=== PATIENT | male | born 1930 | race Caucasian/White ===

== ENCOUNTER → 2017-05-24 | Outpatient (CLI) | payer MEDICARE, MEDICAID ==
[~2017-05-24] MED LIST: APAP325T4 PO; AZOP0.2S OU; BACITAB PO; BRIM1OPD OU; CARV3.12 PO; CLEO300C2 PO; DOCU100C16 PO; DOCU10CA PO; FINA5TAB2 PO; FLOM5CAP PO; FURO40TA2 PO; IPRASOL4 INH; KLOR1TAB77 PO; LEVA1TAB2 PO; LEVA750T7 PO; LISI2.5T3 PO; MAGN400C PO; MILKSUS PO; MILKSUS5 PO; POTA10CA PO; POTA20TA PO; PROAAER10 IN; TAMS0.4C2 PO; [UNRECOGNIZED DRUG - CODE] PO
== END ==
LOC: M ST 10:27
PROVIDERS: ATTEND Nurse Practitioner Family
DX: R13.10 Dysphagia, unspecified (principal)
CPT/HCPCS: 92610; G8996; G8997; G8998

== ENCOUNTER → 2017-09-21 | Outpatient (REF) | payer MEDICARE, MEDICAID ==
[2017-09-21 12:27] LABS: MEAN CORPUSCULAR HEMOGLOBIN 29.7 pg (27.0-33.0); PLATELET COUNT, AUTOMATED 158 10^3/uL (150-450); RED CELL DISTRIBUTION WIDTH 14.7 % (11.5-14.5); WHITE BLOOD COUNT 4.3 10^3/uL (4.0-10.0)
[2017-09-21 13:09] LABS: ALBUMIN 2.6 GM/DL (3.2-5.2); ALBUMIN/GLOBULIN RATIO 0.72 (1.00-1.93); ALKALINE PHOSPHATASE 61 U/L (45-117); ALT/SGPT 8 U/L (12-78); ANION GAP 9 MEQ/L (8-16); AST/SGOT 9 U/L (7-37); BILIRUBIN,TOTAL 0.7 MG/DL (0.2-1.0); BLOOD UREA NITROGEN 16 MG/DL (7-18); CALCIUM LEVEL 8.4 MG/DL (8.8-10.2); CARBON DIOXIDE LEVEL 32 MEQ/L (21-32); CHLORIDE LEVEL 100 MEQ/L (98-107); CREATININE FOR GFR 1.17 MG/DL (0.70-1.30); GLOMERULAR FILTRATION RATE > 60.0 (>35); GLUCOSE, FASTING 98 MG/DL (83-110); POTASSIUM SERUM 3.5 MEQ/L (3.5-5.1); SODIUM LEVEL 141 MEQ/L (136-145); TOTAL PROTEIN 6.2 GM/DL (6.4-8.2)
== END ==
PROVIDERS: ATTEND Nurse Practitioner Family
DX: I50.9 Heart failure, unspecified (principal)

== ENCOUNTER → 2017-11-29 | Outpatient (REF) | payer MEDICARE, MEDICAID ==
[2017-11-29 14:07] LABS: AMORPHOUS SEDIMENT SMALL (NEGATIVE); APPEARANCE, URINE CLOUDY (CLEAR); BACTERIA, URINE AUTO 2+ (NEGATIVE); BILIRUBIN, URINE AUTO NEGATIVE (NEGATIVE); BLOOD, URINE BLOOD 1+ (NEGATIVE); COLOR, URINE YELLOW (YELLOW); GLUCOSE, URINE (UA) AUTO NEGATIVE (NEGATIVE); KETONE, URINE AUTO NEGATIVE (NEGATIVE); LEUKOCYTE ESTERASE, URINE AUTO 3+ (NEGATIVE); MUCUS, URINE SMALL (NEGATIVE); NITRITE, URINE AUTO NEGATIVE (NEGATIVE); PROTEIN, URINE AUTO 1+ mg/dL (NEGATIVE); RBC, URINE AUTO 17 /HPF (0-3); SPECIFIC GRAVITY URINE AUTO 1.012 (1.002-1.035); SQUAMOUS EPITHELIAL CELL UR AU 0 /HPF (0-6); WBC, URINE AUTO 133 /HPF (0-3)
== END ==
DX: F28 Other psychotic disorder not due to a substance or known physiological condition (principal)
CPT/HCPCS: 81001

== ENCOUNTER 2018-01-02 18:27 | Emergency (ER) | payer MEDICARE, MEDICAID ==
[2018-01-02 19:39] LABS: BASO % 0.3 % (0.0-1.0); EOS % 0.1 % (0.0-3.0); HEMATOCRIT 37.3 % (42.0-52.0); HEMOGLOBIN 12.6 g/dl (14.0-18.0); IMMATURE GRANULOCYTE % 0.3 % (0-3.0); LYMPH # 0.3 10^3/uL (1.5-4.5); LYMPH % 4.2 % (24.0-44.0); MEAN CORPUSCULAR HEMOGLOBIN 30.1 pg (27.0-33.0); MEAN CORPUSCULAR HGB CONC 33.8 g/dl (32.0-36.5); MONO # 0.9 10^3/uL (0.0-0.8); NEUTROPHILS # 6.5 10^3/uL (1.8-7.7); NEUTROPHILS % 83.1 % (36.0-66.0); PLATELET COUNT, AUTOMATED 108 10^3/uL (150-450); RED BLOOD COUNT 4.19 10^6/uL (4.30-6.10); RED CELL DISTRIBUTION WIDTH 14.6 % (11.5-14.5); WHITE BLOOD COUNT 7.8 10^3/uL (4.0-10.0)
[2018-01-02 19:42] LABS: OSMOLALITY SERUM 289 MOSM/KG (280-301)
[2018-01-02 19:50] LABS: BEDSIDE GLUCOSE 175 MG/DL (83-110)
[2018-01-02 19:56] LABS: INR 1.17; PROTHROMBIN TIME 15.1 SECONDS (12.4-14.5)
[2018-01-02 20:03] LABS: ABG BASE EXCESS 4.4 (-2.0-2.0); ABG HCO3 26.7 MEQ/L (22.0-26.0); ABG O2 SATURATION 95.6 % (95.0-99.0); ABG PARTIAL PRESSURE CO2 32.5 mmHg (35.0-45.0); ABG PARTIAL PRESSURE O2 69.7 mmHg (75.0-100.0); ABG STANDARD HCO3 28.4 MEQ/L (22.0-26.0); ABG TOTAL CO2 27.7 MEQ/L (23.0-31.0); ABG pH (ARTERIAL) 7.532 UNITS (7.350-7.450)
[2018-01-02 20:04] LABS: AMMONIA 21 uMOL/L (<32)
[2018-01-02 20:09] LABS: LACTIC ACID SEPSIS PROTOCOL 1.9 MMOL/L (0.4-2.0)
[2018-01-02 20:13] LABS: ANION GAP 7 MEQ/L (8-16); BLOOD UREA NITROGEN 17 MG/DL (7-18); CALCIUM LEVEL 7.8 MG/DL (8.8-10.2); CARBON DIOXIDE LEVEL 29 MEQ/L (21-32); CHLORIDE LEVEL 101 MEQ/L (98-107); GLOMERULAR FILTRATION RATE 55.6 (>35); GLUCOSE, FASTING 183 MG/DL (70-100); POTASSIUM SERUM 3.8 MEQ/L (3.5-5.1); SODIUM LEVEL 137 MEQ/L (136-145)
[2018-01-02 20:14] LABS: ALKALINE PHOSPHATASE 64 U/L (45-117); ALT/SGPT 7 U/L (12-78); AST/SGOT 10 U/L (7-37); BILIRUBIN,TOTAL 0.8 MG/DL (0.2-1.0); CPK CREATINE PHOSPHOKINASE 21 U/L (39-308); MB/CK RELATIVE INDEX 4.76 (< OR =4)
[2018-01-02 20:15] LABS: ALBUMIN 2.8 GM/DL (3.2-5.2); BILIRUBIN,DIRECT 0.3 MG/DL (0.0-0.2); FREE THYROXINE INDEX 2.8 % (1.4-3.8); T UPTAKE 39 % (33-40); THYROXINE (T4) 7.3 UG/DL (4.5-12.0); TOTAL PROTEIN 6.3 GM/DL (6.4-8.2); TROPONIN I < 0.02 NG/ML (< 0.10)
[2018-01-02 20:27] LABS: KETONE, URINE AUTO RFX NEGATIVE (NEGATIVE); LEUKOCYTE ESTERASE UR AUTO RFX 2+ (NEGATIVE); MUCUS, URINE RFX SMALL (NEGATIVE); NITRITE, URINE AUTO RFX NEGATIVE (NEGATIVE); RBC, URINE AUTO RFX 2 /HPF (0-3); SPECIFIC GRAVITY UR AUTO RFX 1.012 (1.002-1.035); SQUAM EPITHELIAL CELL UR AURFX 0 /HPF (0-6); WBC, URINE AUTO RFX 20 /HPF (0-3)
[2018-01-02 20:38] LABS: AMPHETAMINES LEVEL URINE NEGATIVE (NEGATIVE); BARBITURATES URINE NEGATIVE (NEGATIVE); BENZODIAZEPINES URINE NEGATIVE (NEGATIVE); CANNABINOIDS URINE NEGATIVE (NEGATIVE); COCAINE METABOLITE URINE NEGATIVE (NEGATIVE); METHADONE URINE NEGATIVE (NEGATIVE); OPIATES URINE NEGATIVE (NEGATIVE); PHENCYCLIDINE URINE NEGATIVE (NEGATIVE)
== END 2018-01-03 00:30 | disposition home or self-care (01) ==
LOC: M ED 01-03 00:30
DX: R53.1 Weakness (principal); Z95.0 Presence of cardiac pacemaker; R94.31 Abnormal electrocardiogram [ECG] [EKG]; E66.9 Obesity, unspecified; I10 Essential (primary) hypertension; I50.9 Heart failure, unspecified; N40.0 Benign prostatic hyperplasia without lower urinary tract symptoms; H40.9 Unspecified glaucoma; Z79.899 Other long term (current) drug therapy
CPT/HCPCS: 71046

== ENCOUNTER → 2018-01-05 | Outpatient (REF) | payer MEDICARE, MEDICAID | DX: R91.8 Other nonspecific abnormal finding of lung field (principal); I51.7 Cardiomegaly; R05 Cough | CPT/HCPCS: 71045 ==

== ENCOUNTER → 2018-02-04 | Outpatient (REF) | payer MEDICARE, MEDICAID ==
[2018-02-04 10:46] LABS: HEMATOCRIT 41.5 % (42.0-52.0); HEMOGLOBIN 13.8 g/dl (13.5-17.5); MEAN CORPUSCULAR HEMOGLOBIN 29.9 pg (27.0-33.0); MEAN CORPUSCULAR HGB CONC 33.3 g/dl (32.0-36.5); PLATELET COUNT, AUTOMATED 141 10^3/uL (150-450); RED BLOOD COUNT 4.61 10^6/uL (4.30-6.10); WHITE BLOOD COUNT 7.4 10^3/uL (4.0-10.0)
[2018-02-04 11:22] LABS: ALBUMIN 2.9 GM/DL (3.2-5.2); ALBUMIN/GLOBULIN RATIO 0.74 (1.00-1.93); ALKALINE PHOSPHATASE 68 U/L (45-117); ALT/SGPT 8 U/L (12-78); ANION GAP 5 MEQ/L (8-16); AST/SGOT 10 U/L (7-37); BILIRUBIN,TOTAL 0.8 MG/DL (0.2-1.0); BLOOD UREA NITROGEN 14 MG/DL (7-18); CALCIUM LEVEL 8.3 MG/DL (8.8-10.2); CARBON DIOXIDE LEVEL 35 MEQ/L (21-32); CHLORIDE LEVEL 102 MEQ/L (98-107); CREATININE FOR GFR 1.21 MG/DL (0.70-1.30); GLOMERULAR FILTRATION RATE > 60.0 (>35); GLUCOSE, FASTING 90 MG/DL (70-100); NT-PRO BNP 3166 PG/ML (<450); POTASSIUM SERUM 3.2 MEQ/L (3.5-5.1); SODIUM LEVEL 142 MEQ/L (136-145); TOTAL PROTEIN 6.8 GM/DL (6.4-8.2)
== END ==
DX: R60.9 Edema, unspecified (principal)
CPT/HCPCS: 80053

== ENCOUNTER → 2018-02-25 | Outpatient (REF) | payer MEDICARE, MEDICAID ==
[2018-02-25 10:02] LABS: HEMATOCRIT 38.2 % (42.0-52.0); HEMOGLOBIN 12.9 g/dl (13.5-17.5); MEAN CORPUSCULAR HEMOGLOBIN 30.1 pg (27.0-33.0); MEAN CORPUSCULAR HGB CONC 33.8 g/dl (32.0-36.5); PLATELET COUNT, AUTOMATED 149 10^3/uL (150-450); RED BLOOD COUNT 4.29 10^6/uL (4.30-6.10); RED CELL DISTRIBUTION WIDTH 14.9 % (11.5-14.5); WHITE BLOOD COUNT 3.8 10^3/uL (4.0-10.0)
[2018-02-25 10:31] LABS: ALBUMIN 2.9 GM/DL (3.2-5.2); ALBUMIN/GLOBULIN RATIO 0.73 (1.00-1.93); ALKALINE PHOSPHATASE 68 U/L (45-117); ALT/SGPT < 6 U/L (12-78); ANION GAP 8 MEQ/L (8-16); AST/SGOT 10 U/L (7-37); BILIRUBIN,TOTAL 0.7 MG/DL (0.2-1.0); BLOOD UREA NITROGEN 16 MG/DL (7-18); CALCIUM LEVEL 8.3 MG/DL (8.8-10.2); CARBON DIOXIDE LEVEL 32 MEQ/L (21-32); CHLORIDE LEVEL 102 MEQ/L (98-107); CREATININE FOR GFR 1.05 MG/DL (0.70-1.30); GLOMERULAR FILTRATION RATE > 60.0 (>35); GLUCOSE, FASTING 88 MG/DL (70-100); POTASSIUM SERUM 3.1 MEQ/L (3.5-5.1); SODIUM LEVEL 142 MEQ/L (136-145); TOTAL PROTEIN 6.9 GM/DL (6.4-8.2)
== END ==
DX: I50.9 Heart failure, unspecified (principal)
CPT/HCPCS: 80053

== ENCOUNTER 2018-04-07 15:40 | Emergency (ER) | payer MEDICARE, MEDICAID | END 2018-04-07 17:33 | disposition home or self-care (01) | LOC: M ED 15:40 | DX: S00.03XA Contusion of scalp, initial encounter (principal); W19.XXXA Unspecified fall, initial encounter; Y92.9 Unspecified place or not applicable; Y93.9 Activity, unspecified; Y99.9 Unspecified external cause status; I10 Essential (primary) hypertension; H40.9 Unspecified glaucoma; Z79.899 Other long term (current) drug therapy | CPT/HCPCS: 70450 ==

== ENCOUNTER 2018-05-12 15:51 | Inpatient (IN) | payer MEDICARE, MEDICAID ==
[2018-05-12 17:31] LABS: HEMATOCRIT 37.9 % (42.0-52.0); HEMOGLOBIN 12.8 g/dl (13.5-17.5); MEAN CORPUSCULAR HEMOGLOBIN 30.5 pg (27.0-33.0); MEAN CORPUSCULAR HGB CONC 33.8 g/dl (32.0-36.5); MEAN CORPUSCULAR VOLUME 90.2 fl (80.0-96.0); PLATELET COUNT, AUTOMATED 120 10^3/uL (150-450); RED CELL DISTRIBUTION WIDTH 14.5 % (11.5-14.5); WHITE BLOOD COUNT 18.2 10^3/uL (4.0-10.0)
[2018-05-12 17:32] LABS: ADD MANUAL DIFFER YES; DIFF SLIDE NUMBER 291; POSITIVE MORPH POS FLAG
[2018-05-12 17:35] LABS: PROTHROMBIN TIME 16.4 SECONDS (12.1-14.4)
[2018-05-12 17:36] LABS: PARTIAL THROMBOPLASTIN TIME 36.6 SECONDS (25.4-37.6)
[2018-05-12 17:52] LABS: BANDS 10 % (< 11); BASOPHILS 1 % (0-4); LYMPHOCYTES 4 % (16-52); MONOCYTES 3 % (0-8); NEUTROPHILS 82 % (35-75); PLATELET ESTIMATE DECREASED (NORMAL)
[2018-05-12 17:55] LABS: ALBUMIN 2.6 GM/DL (3.2-5.2); ALBUMIN/GLOBULIN RATIO 0.67 (1.00-1.93); ALKALINE PHOSPHATASE 85 U/L (45-117); ALT/SGPT 8 U/L (12-78); ANION GAP 8 MEQ/L (8-16); AST/SGOT 6 U/L (7-37); BILIRUBIN,DIRECT 0.4 MG/DL (0.0-0.2); BILIRUBIN,TOTAL 1.4 MG/DL (0.2-1.0); BLOOD UREA NITROGEN 28 MG/DL (7-18); CALCIUM LEVEL 8.4 MG/DL (8.8-10.2); CARBON DIOXIDE LEVEL 31 MEQ/L (21-32); CHLORIDE LEVEL 101 MEQ/L (98-107); CPK CREATINE PHOSPHOKINASE 29 U/L (39-308); CREATININE FOR GFR 1.51 MG/DL (0.70-1.30); GLOMERULAR FILTRATION RATE 46.8 (>35); GLUCOSE, FASTING 122 MG/DL (70-100); POTASSIUM SERUM 3.8 MEQ/L (3.5-5.1); SODIUM LEVEL 140 MEQ/L (136-145); TOTAL PROTEIN 6.5 GM/DL (6.4-8.2); TROPONIN I < 0.02 NG/ML (< 0.10)
[2018-05-12 18:01] LABS: CK-MB VALUE MASS < 1.0 NG/ML (<3.6); MB/CK RELATIVE INDEX 3.44 (< OR =4); NT-PRO BNP 7923 PG/ML (<450)
[2018-05-12] MEDS: NS 500 ML IV (19:00)
[2018-05-12] MEDS: AZITHROMYCIN INJ 500 MG, VIAL MATE ADAPTER 1 EACH in D5W 250 ML IV (19:00)
[2018-05-12] MEDS: cefTRIAXone SOD 2 GM in D5W MINI-BAG PLUS 50 ML IV (19:00)
[2018-05-12 21:44] LABS: LACTIC ACID SEPSIS PROTOCOL 1.4 MMOL/L (0.4-2.0)
[2018-05-12] MEDS: NS 1,000 ML IV (21:55)
[2018-05-12] MEDS: HEPARIN SOD (PORCINE) 5000 UNITS/ML VIAL SC (22:00)
[2018-05-12] MEDS ORDERED: ACETAMINOPHEN TAB 650MG DOSE (2X325MG) PO (22:00)
[2018-05-12] MEDS ORDERED: IPRATROPIUM 0.5MG/ALBUTEROL 2.5MG INH SOL UD 3ML (DUONEB)(J7620) INH (22:15)
[2018-05-12] MEDS ORDERED: MOM 30ML SUSPENSION UDC PO (22:15)
[2018-05-12] MEDS ORDERED: DOCUSATE SODIUM 100 MG CAP PO (22:15)
[2018-05-12] MEDS ORDERED: ONDANSETRON 4 MG ORAL DISINTEGRATING TAB (Q0162 PER 1MG) PO (22:15)
[2018-05-13 00:51] LABS: MAGNESIUM LEVEL 2.1 MG/DL (1.8-2.4)
[2018-05-13] MEDS: SODIUM CHLORIDE 0.9% 1000 ML IV (02:00)
[2018-05-13 05:33] LABS: BASO % 0.2 % (0.0-1.0); EOS # 0.1 10^3/uL (0.0-0.50); EOS % 0.7 % (0.0-3.0); HEMATOCRIT 34.1 % (42.0-52.0); HEMOGLOBIN 11.6 g/dl (13.5-17.5); IMMATURE GRANULOCYTE % 0.5 % (0-3.0); LYMPH # 1.1 10^3/uL (1.5-4.5); LYMPH % 8.9 % (24.0-44.0); MEAN CORPUSCULAR HEMOGLOBIN 30.5 pg (27.0-33.0); MEAN CORPUSCULAR VOLUME 89.7 fl (80.0-96.0); MONO # 0.6 10^3/uL (0.0-0.8); MONO % 4.5 % (0.0-5.0); NEUTROPHILS # 10.3 10^3/uL (1.8-7.7); NEUTROPHILS % 85.2 % (36.0-66.0); PLATELET COUNT, AUTOMATED 104 10^3/uL (150-450); RED CELL DISTRIBUTION WIDTH 14.4 % (11.5-14.5); WHITE BLOOD COUNT 12.1 10^3/uL (4.0-10.0)
[2018-05-13 05:49] LABS: ANION GAP 5 MEQ/L (8-16); BLOOD UREA NITROGEN 27 MG/DL (7-18); CALCIUM LEVEL 8.1 MG/DL (8.8-10.2); CARBON DIOXIDE LEVEL 32 MEQ/L (21-32); CHLORIDE LEVEL 105 MEQ/L (98-107); CREATININE FOR GFR 1.24 MG/DL (0.70-1.30); GLOMERULAR FILTRATION RATE 58.7 (>35); GLUCOSE, FASTING 99 MG/DL (70-100); POTASSIUM SERUM 3.5 MEQ/L (3.5-5.1); SODIUM LEVEL 142 MEQ/L (136-145)
[2018-05-13] MEDS: HEPARIN SOD (PORCINE) 5000 UNITS/ML VIAL SC ×3 (06:50→22:12)
[2018-05-13] MEDS: POTASSIUM CHLORIDE 10 MEQ SR TABLET PO ×2 (08:12→22:12)
[2018-05-13] MEDS: DOCUSATE SODIUM 100 MG CAP PO ×2 (08:12→22:12)
[2018-05-13] MEDS: FINASTERIDE 5 MG TAB PO (08:12)
[2018-05-13] MEDS: TAMSULOSIN 0.4 MG CAP PO (08:12)
[2018-05-13] MEDS: BRIMONIDINE 0.1% OPHTH SOLN 5 ML OU (08:13)
[2018-05-13] MEDS: TORSEMIDE 20 MG TAB PO ×2 (08:13→14:16)
[2018-05-13 19:28] LABS: ERYTHROCYTE SEDIMENTATION RATE 30 mm/hr (0-30)
[2018-05-13] MEDS: cefTRIAXone SOD 1 GM in D5W MINI-BAG PLUS 50 ML IV (20:31)
[2018-05-13] MEDS: AZITHROMYCIN INJ 500 MG, VIAL MATE ADAPTER 1 EACH in D5W 250 ML IV (22:27)
[2018-05-14] MEDS: HEPARIN SOD (PORCINE) 5000 UNITS/ML VIAL SC ×3 (05:02→22:18)
[2018-05-14 08:42] LABS: BASO % 0.3 % (0.0-1.0); EOS # 0.1 10^3/uL (0.0-0.50); EOS % 0.8 % (0.0-3.0); HEMATOCRIT 38.5 % (42.0-52.0); HEMOGLOBIN 12.9 g/dl (13.5-17.5); IMMATURE GRANULOCYTE % 0.4 % (0-3.0); LYMPH # 1.4 10^3/uL (1.5-4.5); LYMPH % 19.7 % (24.0-44.0); MEAN CORPUSCULAR HEMOGLOBIN 30.4 pg (27.0-33.0); MEAN CORPUSCULAR HGB CONC 33.5 g/dl (32.0-36.5); MEAN CORPUSCULAR VOLUME 90.6 fl (80.0-96.0); MONO # 0.4 10^3/uL (0.0-0.8); MONO % 4.9 % (0.0-5.0); NEUTROPHILS # 5.2 10^3/uL (1.8-7.7); NEUTROPHILS % 73.9 % (36.0-66.0); PLATELET COUNT, AUTOMATED 127 10^3/uL (150-450); RED BLOOD COUNT 4.25 10^6/uL (4.30-6.10); RED CELL DISTRIBUTION WIDTH 14.6 % (11.5-14.5); WHITE BLOOD COUNT 7.1 10^3/uL (4.0-10.0)
[2018-05-14] MEDS: TAMSULOSIN 0.4 MG CAP PO (08:50)
[2018-05-14] MEDS: TORSEMIDE 20 MG TAB PO ×2 (08:50→13:58)
[2018-05-14] MEDS: FINASTERIDE 5 MG TAB PO (08:50)
[2018-05-14] MEDS: DOCUSATE SODIUM 100 MG CAP PO ×2 (08:51→20:35)
[2018-05-14] MEDS: POTASSIUM CHLORIDE 10 MEQ SR TABLET PO ×2 (08:51→10:20)
[2018-05-14 08:59] LABS: ANION GAP 7 MEQ/L (8-16); BLOOD UREA NITROGEN 21 MG/DL (7-18); CARBON DIOXIDE LEVEL 32 MEQ/L (21-32); CHLORIDE LEVEL 105 MEQ/L (98-107); CREATININE FOR GFR 1.11 MG/DL (0.70-1.30); GLOMERULAR FILTRATION RATE > 60.0 (>35); GLUCOSE, FASTING 105 MG/DL (70-100); MAGNESIUM LEVEL 2.1 MG/DL (1.8-2.4); POTASSIUM SERUM 2.9 MEQ/L (3.5-5.1); SODIUM LEVEL 144 MEQ/L (136-145)
[2018-05-14] MEDS: BRIMONIDINE 0.1% OPHTH SOLN 5 ML OU (09:00)
[2018-05-14 09:01] LABS: ALBUMIN 2.3 GM/DL (3.2-5.2); ALBUMIN/GLOBULIN RATIO 0.58 (1.00-1.93); ALKALINE PHOSPHATASE 76 U/L (45-117); ALT/SGPT 7 U/L (12-78); AST/SGOT 9 U/L (7-37); BILIRUBIN,DIRECT 0.2 MG/DL (0.0-0.2); BILIRUBIN,TOTAL 0.5 MG/DL (0.2-1.0); TOTAL PROTEIN 6.3 GM/DL (6.4-8.2)
[2018-05-14] MEDS: KCL 10MEQ/100ML SWI (KRUN) 10 MEQ in APPROPRIATE DILUENT 1 EA IV ×3 (10:20→13:50)
[2018-05-14 18:08] LABS: KETONE, URINE AUTO RFX NEGATIVE (NEGATIVE); LEUKOCYTE ESTERASE UR AUTO RFX 3+ (NEGATIVE); MUCUS, URINE RFX LARGE (NEGATIVE); NITRITE, URINE AUTO RFX NEGATIVE (NEGATIVE); RBC, URINE AUTO RFX 22 /HPF (0-3); SPECIFIC GRAVITY UR AUTO RFX 1.008 (1.002-1.035); SQUAM EPITHELIAL CELL UR AURFX 0 /HPF (0-6); WBC, URINE AUTO RFX 68 /HPF (0-3)
[2018-05-14] MEDS: cefTRIAXone SOD 1 GM in D5W MINI-BAG PLUS 50 ML IV (20:35)
[2018-05-14] MEDS: AZITHROMYCIN INJ 500 MG, VIAL MATE ADAPTER 1 EACH in D5W 250 ML IV (22:17)
[2018-05-15 06:00] LABS: HEMATOCRIT 35.8 % (42.0-52.0); HEMOGLOBIN 12.1 g/dl (13.5-17.5); MEAN CORPUSCULAR HEMOGLOBIN 30.3 pg (27.0-33.0); MEAN CORPUSCULAR HGB CONC 33.8 g/dl (32.0-36.5); MEAN CORPUSCULAR VOLUME 89.5 fl (80.0-96.0); PLATELET COUNT, AUTOMATED 119 10^3/uL (150-450); RED CELL DISTRIBUTION WIDTH 14.5 % (11.5-14.5); WHITE BLOOD COUNT 9.6 10^3/uL (4.0-10.0)
[2018-05-15] MEDS: HEPARIN SOD (PORCINE) 5000 UNITS/ML VIAL SC ×3 (06:04→22:11)
[2018-05-15 06:22] LABS: ANION GAP 6 MEQ/L (8-16); BLOOD UREA NITROGEN 21 MG/DL (7-18); CARBON DIOXIDE LEVEL 32 MEQ/L (21-32); CHLORIDE LEVEL 107 MEQ/L (98-107); CREATININE FOR GFR 1.02 MG/DL (0.70-1.30); GLOMERULAR FILTRATION RATE > 60.0 (>35); GLUCOSE, FASTING 99 MG/DL (70-100); MAGNESIUM LEVEL 2.1 MG/DL (1.8-2.4); POTASSIUM SERUM 3.3 MEQ/L (3.5-5.1); SODIUM LEVEL 145 MEQ/L (136-145)
[2018-05-15] MEDS: FINASTERIDE 5 MG TAB PO (08:55)
[2018-05-15] MEDS: POTASSIUM CHLORIDE 10 MEQ SR TABLET PO (08:55)
[2018-05-15] MEDS: TAMSULOSIN 0.4 MG CAP PO (08:55)
[2018-05-15] MEDS: DOCUSATE SODIUM 100 MG CAP PO ×2 (08:55→20:18)
[2018-05-15] MEDS: BRIMONIDINE 0.1% OPHTH SOLN 5 ML OU (08:55)
[2018-05-15] MEDS: TORSEMIDE 20 MG TAB PO ×2 (08:56→14:00)
[2018-05-15] MEDS: NYSTATIN 100,000 UNITS/GM TOPICAL PWD 15 GM TOP ×2 (14:42→22:11)
[2018-05-15] MEDS: cefTRIAXone SOD 1 GM in D5W MINI-BAG PLUS 50 ML IV (20:18)
[2018-05-15] MEDS: AZITHROMYCIN INJ 500 MG, VIAL MATE ADAPTER 1 EACH in D5W 250 ML IV (22:10)
[2018-05-16] MEDS: HEPARIN SOD (PORCINE) 5000 UNITS/ML VIAL SC ×3 (06:16→21:22)
[2018-05-16 06:58] LABS: HEMATOCRIT 39.4 % (42.0-52.0); HEMOGLOBIN 12.9 g/dl (13.5-17.5); MEAN CORPUSCULAR HEMOGLOBIN 30.1 pg (27.0-33.0); MEAN CORPUSCULAR HGB CONC 32.7 g/dl (32.0-36.5); MEAN CORPUSCULAR VOLUME 92.1 fl (80.0-96.0); PLATELET COUNT, AUTOMATED 135 10^3/uL (150-450); RED BLOOD COUNT 4.28 10^6/uL (4.30-6.10); RED CELL DISTRIBUTION WIDTH 14.6 % (11.5-14.5); WHITE BLOOD COUNT 5.3 10^3/uL (4.0-10.0)
[2018-05-16 07:12] LABS: ANION GAP 7 MEQ/L (8-16); BLOOD UREA NITROGEN 15 MG/DL (7-18); C REACTIVE PROTEIN QUANTITATIV 9.07 MG/DL (0.00-0.30); CALCIUM LEVEL 8.4 MG/DL (8.8-10.2); CARBON DIOXIDE LEVEL 32 MEQ/L (21-32); CHLORIDE LEVEL 108 MEQ/L (98-107); CREATININE FOR GFR 1.05 MG/DL (0.70-1.30); GLOMERULAR FILTRATION RATE > 60.0 (>35); GLUCOSE, FASTING 92 MG/DL (70-100); MAGNESIUM LEVEL 2.4 MG/DL (1.8-2.4); POTASSIUM SERUM 3.7 MEQ/L (3.5-5.1); SODIUM LEVEL 147 MEQ/L (136-145)
[2018-05-16] MEDS: POTASSIUM CHLORIDE 10 MEQ SR TABLET PO (09:08)
[2018-05-16] MEDS: DOCUSATE SODIUM 100 MG CAP PO ×2 (09:08→21:21)
[2018-05-16] MEDS: TORSEMIDE 20 MG TAB PO ×2 (09:08→14:46)
[2018-05-16] MEDS: BRIMONIDINE 0.1% OPHTH SOLN 5 ML OU (09:09)
[2018-05-16] MEDS: TAMSULOSIN 0.4 MG CAP PO (09:09)
[2018-05-16] MEDS: NYSTATIN 100,000 UNITS/GM TOPICAL PWD 15 GM TOP ×2 (09:09→21:22)
[2018-05-16] MEDS: FINASTERIDE 5 MG TAB PO (09:09)
[2018-05-16] MEDS: cefTRIAXone SOD 1 GM in D5W MINI-BAG PLUS 50 ML IV (20:09)
[2018-05-16] MEDS: AZITHROMYCIN INJ 500 MG, VIAL MATE ADAPTER 1 EACH in D5W 250 ML IV (21:21)
[2018-05-17 00:07] LABS: BODY FLUID CULTURE Not Indicated (.); LEGIONELLA ANTIGEN URINE Negative (Negative); ORGANISM ID Not indicated. (.); SPECIMEN SOURCE Urine (.); URINE STREP PNEUMONIAE ANTIGEN Negative (Negative)
[2018-05-17] MEDS: HEPARIN SOD (PORCINE) 5000 UNITS/ML VIAL SC ×3 (05:25→21:50)
[2018-05-17 06:14] LABS: HEMATOCRIT 39.8 % (42.0-52.0); HEMOGLOBIN 13.1 g/dl (13.5-17.5); MEAN CORPUSCULAR HEMOGLOBIN 30.1 pg (27.0-33.0); MEAN CORPUSCULAR HGB CONC 32.9 g/dl (32.0-36.5); MEAN CORPUSCULAR VOLUME 91.5 fl (80.0-96.0); PLATELET COUNT, AUTOMATED 133 10^3/uL (150-450); RED BLOOD COUNT 4.35 10^6/uL (4.30-6.10); RED CELL DISTRIBUTION WIDTH 14.4 % (11.5-14.5); WHITE BLOOD COUNT 4.4 10^3/uL (4.0-10.0)
[2018-05-17 06:27] LABS: ANION GAP 3 MEQ/L (8-16); BLOOD UREA NITROGEN 13 MG/DL (7-18); CALCIUM LEVEL 8.5 MG/DL (8.8-10.2); CARBON DIOXIDE LEVEL 36 MEQ/L (21-32); CHLORIDE LEVEL 106 MEQ/L (98-107); CREATININE FOR GFR 1.06 MG/DL (0.70-1.30); GLOMERULAR FILTRATION RATE > 60.0 (>35); GLUCOSE, FASTING 94 MG/DL (70-100); MAGNESIUM LEVEL 2.3 MG/DL (1.8-2.4); POTASSIUM SERUM 3.6 MEQ/L (3.5-5.1); SODIUM LEVEL 145 MEQ/L (136-145)
[2018-05-17] MEDS: POTASSIUM CHLORIDE 10 MEQ SR TABLET PO (08:10)
[2018-05-17] MEDS: TORSEMIDE 20 MG TAB PO ×2 (08:11→14:00)
[2018-05-17] MEDS: FINASTERIDE 5 MG TAB PO (08:11)
[2018-05-17] MEDS: TAMSULOSIN 0.4 MG CAP PO (08:11)
[2018-05-17] MEDS: DOCUSATE SODIUM 100 MG CAP PO ×2 (08:11→20:06)
[2018-05-17] MEDS: NYSTATIN 100,000 UNITS/GM TOPICAL PWD 15 GM TOP ×2 (08:12→20:06)
[2018-05-17] MEDS: BRIMONIDINE 0.1% OPHTH SOLN 5 ML OU (08:12)
[2018-05-17] MEDS: AZITHROMYCIN 250 MG TAB PO (15:06)
[2018-05-17] MEDS: cefTRIAXone SOD 1 GM in D5W MINI-BAG PLUS 50 ML IV (20:05)
[2018-05-18] MEDS: HEPARIN SOD (PORCINE) 5000 UNITS/ML VIAL SC (05:03)
[2018-05-18 07:17] LABS: HEMATOCRIT 38.5 % (42.0-52.0); HEMOGLOBIN 12.8 g/dl (13.5-17.5); MEAN CORPUSCULAR HGB CONC 33.2 g/dl (32.0-36.5); MEAN CORPUSCULAR VOLUME 90.4 fl (80.0-96.0); PLATELET COUNT, AUTOMATED 148 10^3/uL (150-450); RED BLOOD COUNT 4.26 10^6/uL (4.30-6.10); RED CELL DISTRIBUTION WIDTH 14.4 % (11.5-14.5); WHITE BLOOD COUNT 4.3 10^3/uL (4.0-10.0)
[2018-05-18 07:45] LABS: ANION GAP 4 MEQ/L (8-16); BLOOD UREA NITROGEN 14 MG/DL (7-18); CALCIUM LEVEL 8.3 MG/DL (8.8-10.2); CARBON DIOXIDE LEVEL 35 MEQ/L (21-32); CHLORIDE LEVEL 106 MEQ/L (98-107); CREATININE FOR GFR 1.11 MG/DL (0.70-1.30); GLOMERULAR FILTRATION RATE > 60.0 (>35); GLUCOSE, FASTING 97 MG/DL (70-100); MAGNESIUM LEVEL 2.4 MG/DL (1.8-2.4); POTASSIUM SERUM 4.1 MEQ/L (3.5-5.1); SODIUM LEVEL 145 MEQ/L (136-145)
[2018-05-18] MEDS: TAMSULOSIN 0.4 MG CAP PO (08:31)
[2018-05-18] MEDS: DOCUSATE SODIUM 100 MG CAP PO (08:31)
[2018-05-18] MEDS: FINASTERIDE 5 MG TAB PO (08:31)
[2018-05-18] MEDS: POTASSIUM CHLORIDE 10 MEQ SR TABLET PO (08:32)
[2018-05-18] MEDS: AZITHROMYCIN 250 MG TAB PO (08:32)
[2018-05-18 08:41] LABS: C REACTIVE PROTEIN QUANTITATIV 3.58 MG/DL (0.00-0.30)
[2018-05-18] MEDS: BRIMONIDINE 0.1% OPHTH SOLN 5 ML OU (09:00)
[2018-05-18] MEDS: NYSTATIN 100,000 UNITS/GM TOPICAL PWD 15 GM TOP (09:00)
== END 2018-05-18 13:07 | DRG 871 ==
LOC: M MS4PR 05-17 21:16 → M MSPAV 05-13 15:46 → M ED 15:51 → M ED INP 22:31 → M PCU 23:31
DX: A41.9 Sepsis, unspecified organism (principal); J18.9 Pneumonia, unspecified organism; I50.32 Chronic diastolic (congestive) heart failure; N17.9 Acute kidney failure, unspecified; I11.0 Hypertensive heart disease with heart failure; E78.5 Hyperlipidemia, unspecified; N40.0 Benign prostatic hyperplasia without lower urinary tract symptoms; N48.29 Other inflammatory disorders of penis; B96.5 Pseudomonas (aeruginosa) (mallei) (pseudomallei) as the cause of diseases classified elsewhere; M19.90 Unspecified osteoarthritis, unspecified site; H40.9 Unspecified glaucoma; Z95.0 Presence of cardiac pacemaker; Z98.41 Cataract extraction status, right eye; Z98.42 Cataract extraction status, left eye; Z79.899 Other long term (current) drug therapy

== ENCOUNTER → 2018-05-12 | Outpatient (CLI) | payer MEDICARE, MEDICAID | LOC: M LRY 13:27 | DX: R05 Cough (principal); J98.4 Other disorders of lung; I51.7 Cardiomegaly; I70.0 Atherosclerosis of aorta; M85.88 Other specified disorders of bone density and structure, other site; Z95.0 Presence of cardiac pacemaker | CPT/HCPCS: 71046 ==

== ENCOUNTER → 2018-05-24 | Outpatient (REF) ==
[2018-05-24 15:16] LABS: ANION GAP 10 MEQ/L (8-16); BLOOD UREA NITROGEN 25 MG/DL (7-18); CALCIUM LEVEL 8.5 MG/DL (8.8-10.2); CARBON DIOXIDE LEVEL 30 MEQ/L (21-32); CHLORIDE LEVEL 106 MEQ/L (98-107); CREATININE FOR GFR 1.85 MG/DL (0.70-1.30); GLUCOSE, FASTING 176 MG/DL (70-100); NT-PRO BNP 1912 PG/ML (<450); POTASSIUM SERUM 4.1 MEQ/L (3.5-5.1); SODIUM LEVEL 146 MEQ/L (136-145)
== END ==
LOC: SKLAB5 10:12
DX: I50.9 Heart failure, unspecified (principal)

== ENCOUNTER → 2018-06-07 | Outpatient (CLI) | payer MEDICARE, MEDICAID | LOC: M ST 12:54 | DX: R13.12 Dysphagia, oropharyngeal phase (principal); A41.9 Sepsis, unspecified organism | CPT/HCPCS: 74230 ==

== ENCOUNTER → 2018-06-08 | Outpatient (REF) | payer MEDICARE, MEDICAID ==
[2018-06-08 15:21] LABS: ANION GAP 6 MEQ/L (8-16); BLOOD UREA NITROGEN 33 MG/DL (7-18); CALCIUM LEVEL 7.9 MG/DL (8.8-10.2); CARBON DIOXIDE LEVEL 32 MEQ/L (21-32); CHLORIDE LEVEL 110 MEQ/L (98-107); GLUCOSE, FASTING 122 MG/DL (70-100); NT-PRO BNP 1906 PG/ML (<450); POTASSIUM SERUM 3.7 MEQ/L (3.5-5.1); SODIUM LEVEL 148 MEQ/L (136-145)
== END ==
LOC: SKLAB5 14:10
DX: I50.9 Heart failure, unspecified (principal)
CPT/HCPCS: 71045

== ENCOUNTER → 2018-06-09 | Outpatient (REF) | payer MEDICARE, MEDICAID ==
[2018-06-09 09:18] LABS: ANION GAP 6 MEQ/L (8-16); BLOOD UREA NITROGEN 32 MG/DL (7-18); CALCIUM LEVEL 8.3 MG/DL (8.8-10.2); CARBON DIOXIDE LEVEL 34 MEQ/L (21-32); CHLORIDE LEVEL 111 MEQ/L (98-107); CREATININE FOR GFR 1.33 MG/DL (0.70-1.30); GLOMERULAR FILTRATION RATE 54.1 (>35); GLUCOSE, FASTING 85 MG/DL (70-100); POTASSIUM SERUM 3.9 MEQ/L (3.5-5.1); SODIUM LEVEL 151 MEQ/L (136-145)
== END ==
LOC: SKLAB5 03:28
DX: I50.9 Heart failure, unspecified (principal)
CPT/HCPCS: 36415

== ENCOUNTER → 2018-06-10 | Outpatient (REF) ==
[2018-06-10 08:23] LABS: ANION GAP 6 MEQ/L (8-16); BLOOD UREA NITROGEN 32 MG/DL (7-18); CALCIUM LEVEL 8.4 MG/DL (8.8-10.2); CARBON DIOXIDE LEVEL 33 MEQ/L (21-32); CHLORIDE LEVEL 109 MEQ/L (98-107); CREATININE FOR GFR 1.45 MG/DL (0.70-1.30); GLUCOSE, FASTING 84 MG/DL (70-100); SODIUM LEVEL 148 MEQ/L (136-145)
== END ==
LOC: SKLAB5 08:00
DX: E86.0 Dehydration (principal)

== ENCOUNTER → 2018-06-13 | Outpatient (REF) | payer MEDICARE, MEDICAID ==
[2018-06-13 09:41] LABS: ANION GAP 8 MEQ/L (8-16); BLOOD UREA NITROGEN 26 MG/DL (7-18); CALCIUM LEVEL 8.2 MG/DL (8.8-10.2); CARBON DIOXIDE LEVEL 29 MEQ/L (21-32); CHLORIDE LEVEL 107 MEQ/L (98-107); CREATININE FOR GFR 1.11 MG/DL (0.70-1.30); GLOMERULAR FILTRATION RATE > 60.0 (>35); GLUCOSE, FASTING 76 MG/DL (70-100); SODIUM LEVEL 144 MEQ/L (136-145)
== END ==
LOC: M LAB 08:25
DX: I50.9 Heart failure, unspecified (principal); E87.0 Hyperosmolality and hypernatremia
CPT/HCPCS: 80048

== ENCOUNTER → 2018-06-16 | Outpatient (REF) ==
[2018-06-16 09:54] LABS: ANION GAP 6 MEQ/L (8-16); BLOOD UREA NITROGEN 24 MG/DL (7-18); CALCIUM LEVEL 8.3 MG/DL (8.8-10.2); CARBON DIOXIDE LEVEL 30 MEQ/L (21-32); CHLORIDE LEVEL 109 MEQ/L (98-107); CREATININE FOR GFR 1.13 MG/DL (0.70-1.30); GLOMERULAR FILTRATION RATE > 60.0 (>35); GLUCOSE, FASTING 113 MG/DL (70-100); POTASSIUM SERUM 3.7 MEQ/L (3.5-5.1); SODIUM LEVEL 145 MEQ/L (136-145)
== END ==
LOC: SKLAB5 08:00
DX: I50.9 Heart failure, unspecified (principal)

== ENCOUNTER → 2018-06-23 | Outpatient (REF) | payer MEDICARE, MEDICAID ==
[2018-06-23 11:24] LABS: ANION GAP 7 MEQ/L (8-16); BLOOD UREA NITROGEN 21 MG/DL (7-18); CALCIUM LEVEL 8.5 MG/DL (8.8-10.2); CARBON DIOXIDE LEVEL 29 MEQ/L (21-32); CHLORIDE LEVEL 110 MEQ/L (98-107); CREATININE FOR GFR 1.28 MG/DL (0.70-1.30); GLOMERULAR FILTRATION RATE 56.6 (>35); GLUCOSE, FASTING 90 MG/DL (70-100); POTASSIUM SERUM 4.2 MEQ/L (3.5-5.1); SODIUM LEVEL 146 MEQ/L (136-145)
== END ==
LOC: SKLAB5 08:39
DX: I50.9 Heart failure, unspecified (principal)
CPT/HCPCS: 80048

== ENCOUNTER 2018-08-02 21:23 | Inpatient (IN) | payer MEDICARE, MEDICAID ==
[2018-08-02 22:08] LABS: BASO % 0.9 % (0.0-1.0); EOS # 0.1 10^3/uL (0.0-0.50); EOS % 3.2 % (0.0-3.0); HEMATOCRIT 36.6 % (42.0-52.0); HEMOGLOBIN 11.9 g/dl (13.5-17.5); LYMPH % 45.7 % (24.0-44.0); MEAN CORPUSCULAR HEMOGLOBIN 30.9 pg (27.0-33.0); MEAN CORPUSCULAR HGB CONC 32.5 g/dl (32.0-36.5); MEAN CORPUSCULAR VOLUME 95.1 fl (80.0-96.0); MONO # 0.5 10^3/uL (0.0-0.8); MONO % 11.9 % (0.0-5.0); NEUTROPHILS # 1.7 10^3/uL (1.8-7.7); NEUTROPHILS % 38.3 % (36.0-66.0); PLATELET COUNT, AUTOMATED 174 10^3/uL (150-450); RED BLOOD COUNT 3.85 10^6/uL (4.30-6.10); RED CELL DISTRIBUTION WIDTH 15.5 % (11.5-14.5); WHITE BLOOD COUNT 4.4 10^3/uL (4.0-10.0)
[2018-08-02 22:37] LABS: ANION GAP 8 MEQ/L (8-16); BLOOD UREA NITROGEN 20 MG/DL (7-18); CARBON DIOXIDE LEVEL 31 MEQ/L (21-32); CHLORIDE LEVEL 104 MEQ/L (98-107); CREATININE FOR GFR 1.38 MG/DL (0.70-1.30); GLOMERULAR FILTRATION RATE 51.8 (>35); GLUCOSE, FASTING 134 MG/DL (70-100); SODIUM LEVEL 143 MEQ/L (136-145)
[2018-08-02] MEDS: FUROSEMIDE 40 MG/4 ML VIAL (J1940) IV (23:43)
[2018-08-02 23:50] LABS: CK-MB VALUE MASS < 1.0 NG/ML (<3.6); CPK CREATINE PHOSPHOKINASE 19 U/L (39-308); MB/CK RELATIVE INDEX 5.26 (< OR =4); NT-PRO BNP 3824 PG/ML (<450); TROPONIN I < 0.02 NG/ML (< 0.10)
[2018-08-03] MEDS: POTASSIUM CHLORIDE 10 MEQ SR TABLET PO ×4 (00:15→21:24)
[2018-08-03] MEDS: POTASSIUM CHL PWD 20 MEQ PACKET PO (01:03)
[2018-08-03] MEDS: PIPERACILLIN/TAZOBACTAM SOD 3.375 GM in D5W MINI-BAG PLUS 50 ML IV ×3 (05:08→21:24)
[2018-08-03] MEDS ORDERED: MOM 30ML SUSPENSION UDC PO (05:30)
[2018-08-03] MEDS ORDERED: ACETAMINOPHEN 650 MG SUPP PR (05:30)
[2018-08-03] MEDS ORDERED: IPRATROPIUM 0.5MG/ALBUTEROL 2.5MG INH SOL UD 3ML (DUONEB)(J7620) NEB (05:30)
[2018-08-03] MEDS: HEPARIN SOD (PORCINE) 5000 UNITS/ML VIAL SC ×3 (06:00→21:23)
[2018-08-03 07:28] LABS: HEMOGLOBIN 11.1 g/dl (13.5-17.5); MEAN CORPUSCULAR HEMOGLOBIN 30.7 pg (27.0-33.0); MEAN CORPUSCULAR HGB CONC 33.6 g/dl (32.0-36.5); MEAN CORPUSCULAR VOLUME 91.4 fl (80.0-96.0); PLATELET COUNT, AUTOMATED 181 10^3/uL (150-450); RED BLOOD COUNT 3.61 10^6/uL (4.30-6.10); RED CELL DISTRIBUTION WIDTH 15.3 % (11.5-14.5); WHITE BLOOD COUNT 10.2 10^3/uL (4.0-10.0)
[2018-08-03 07:58] LABS: ANION GAP 8 MEQ/L (8-16); BLOOD UREA NITROGEN 22 MG/DL (7-18); C REACTIVE PROTEIN QUANTITATIV 2.22 MG/DL (0.00-0.30); CALCIUM LEVEL 7.8 MG/DL (8.8-10.2); CARBON DIOXIDE LEVEL 28 MEQ/L (21-32); CHLORIDE LEVEL 107 MEQ/L (98-107); GLOMERULAR FILTRATION RATE 55.5 (>35); GLUCOSE, FASTING 157 MG/DL (70-100); POTASSIUM SERUM 3.4 MEQ/L (3.5-5.1); SODIUM LEVEL 143 MEQ/L (136-145)
[2018-08-03] MEDS: IPRATROPIUM 0.5MG/ALBUTEROL 2.5MG INH SOL UD 3ML (DUONEB)(J7620) NEB ×3 (08:53→20:02)
[2018-08-03] MEDS: NS 500 ML IV (09:15)
[2018-08-03] MEDS: BRIMONIDINE 0.1% OPHTH SOLN 5 ML OU (09:53)
[2018-08-03] MEDS: MULTIVITAMINS/MINERALS THERAP 1 TAB PO ×2 (09:53→09:57)
[2018-08-03] MEDS: DOCUSATE SODIUM 100 MG CAP PO ×2 (09:56→21:24)
[2018-08-03] MEDS: NS 1,000 ML IV (10:48)
[2018-08-03 11:46] LABS: LACTIC ACID SEPSIS PROTOCOL 1.9 MMOL/L (0.4-2.0)
[2018-08-03 17:21] LABS: APPEARANCE, URINE CLEAR (CLEAR); BACTERIA, URINE AUTO 1+ (NEGATIVE); BILIRUBIN, URINE AUTO NEGATIVE (NEGATIVE); BLOOD, URINE BLOOD NEGATIVE (NEGATIVE); COLOR, URINE YELLOW (YELLOW); GLUCOSE, URINE (UA) AUTO NEGATIVE (NEGATIVE); KETONE, URINE AUTO NEGATIVE (NEGATIVE); LEUKOCYTE ESTERASE, URINE AUTO 2+ (NEGATIVE); MUCUS, URINE SMALL (NEGATIVE); NITRITE, URINE AUTO NEGATIVE (NEGATIVE); PROTEIN, URINE AUTO NEGATIVE (NEGATIVE); RBC, URINE AUTO 0 /HPF (0-3); SPECIFIC GRAVITY URINE AUTO 1.013 (1.002-1.035); SQUAMOUS EPITHELIAL CELL UR AU 0 /HPF (0-6); UROBILINOGEN, URINE AUTO 0.2 mg/dL (0.0-2.0); WBC, URINE AUTO 17 /HPF (0-3)
[2018-08-03] MEDS ORDERED: PILL CRUSHER/CUTTER 1 EACH XX (20:45)
[2018-08-03] MEDS: NEOSPORIN TOP OINT 15GM TOP (21:23)
[2018-08-03] MEDS: MIRTAZAPINE 15 MG TAB PO (21:24)
[2018-08-04] MEDS: IPRATROPIUM 0.5MG/ALBUTEROL 2.5MG INH SOL UD 3ML (DUONEB)(J7620) NEB ×4 (02:31→19:48)
[2018-08-04] MEDS: PIPERACILLIN/TAZOBACTAM SOD 3.375 GM in D5W MINI-BAG PLUS 50 ML IV ×3 (05:17→21:19)
[2018-08-04] MEDS: HEPARIN SOD (PORCINE) 5000 UNITS/ML VIAL SC ×3 (05:18→21:19)
[2018-08-04 07:05] LABS: HEMATOCRIT 34.2 % (42.0-52.0); MEAN CORPUSCULAR HEMOGLOBIN 30.3 pg (27.0-33.0); MEAN CORPUSCULAR HGB CONC 32.2 g/dl (32.0-36.5); MEAN CORPUSCULAR VOLUME 94.2 fl (80.0-96.0); PLATELET COUNT, AUTOMATED 165 10^3/uL (150-450); RED BLOOD COUNT 3.63 10^6/uL (4.30-6.10); RED CELL DISTRIBUTION WIDTH 15.5 % (11.5-14.5); WHITE BLOOD COUNT 8.8 10^3/uL (4.0-10.0)
[2018-08-04 07:37] LABS: ANION GAP 4 MEQ/L (8-16); BLOOD UREA NITROGEN 22 MG/DL (7-18); C REACTIVE PROTEIN QUANTITATIV 2.02 MG/DL (0.00-0.30); CALCIUM LEVEL 7.9 MG/DL (8.8-10.2); CARBON DIOXIDE LEVEL 33 MEQ/L (21-32); CHLORIDE LEVEL 110 MEQ/L (98-107); CREATININE FOR GFR 1.36 MG/DL (0.70-1.30); GLOMERULAR FILTRATION RATE 52.6 (>35); GLUCOSE, FASTING 88 MG/DL (70-100); NT-PRO BNP 14541 PG/ML (<450); POTASSIUM SERUM 3.2 MEQ/L (3.5-5.1); SODIUM LEVEL 147 MEQ/L (136-145)
[2018-08-04] MEDS: POTASSIUM CHLORIDE 10% LIQ 20 MEQ/15 ML UDC PO ×4 (08:27→21:17)
[2018-08-04] MEDS: TORSEMIDE 20 MG TAB PO ×2 (08:28→09:00)
[2018-08-04] MEDS: DOCUSATE SODIUM 100 MG CAP PO ×2 (08:28→21:00)
[2018-08-04] MEDS: MULTIVITAMINS/MINERALS THERAP 1 TAB PO (08:28)
[2018-08-04] MEDS: BRIMONIDINE 0.1% OPHTH SOLN 5 ML OU (09:00)
[2018-08-04] MEDS: NEOSPORIN TOP OINT 15GM TOP ×2 (10:35→21:19)
[2018-08-04] MEDS: KCL 10MEQ/100ML SWI (KRUN) 10 MEQ in APPROPRIATE DILUENT 1 EA IV ×4 (10:55→22:27)
[2018-08-04 14:13] LABS: ANION GAP 6 MEQ/L (8-16); BLOOD UREA NITROGEN 22 MG/DL (7-18); CALCIUM LEVEL 8.4 MG/DL (8.8-10.2); CARBON DIOXIDE LEVEL 33 MEQ/L (21-32); CHLORIDE LEVEL 109 MEQ/L (98-107); CREATININE FOR GFR 1.27 MG/DL (0.70-1.30); GLUCOSE, FASTING 93 MG/DL (70-100); POTASSIUM SERUM 3.5 MEQ/L (3.5-5.1); SODIUM LEVEL 148 MEQ/L (136-145)
[2018-08-04] MEDS: FUROSEMIDE 40 MG/4 ML VIAL (J1940) IV (15:45)
[2018-08-04 18:21] LABS: ANION GAP 6 MEQ/L (8-16); BLOOD UREA NITROGEN 19 MG/DL (7-18); CALCIUM LEVEL 8.4 MG/DL (8.8-10.2); CARBON DIOXIDE LEVEL 32 MEQ/L (21-32); CHLORIDE LEVEL 109 MEQ/L (98-107); CREATININE FOR GFR 1.31 MG/DL (0.70-1.30); GLUCOSE, FASTING 106 MG/DL (70-100); POTASSIUM SERUM 3.4 MEQ/L (3.5-5.1); SODIUM LEVEL 147 MEQ/L (136-145)
[2018-08-04] MEDS: MIRTAZAPINE 15 MG TAB PO (21:20)
[2018-08-05] MEDS: IPRATROPIUM 0.5MG/ALBUTEROL 2.5MG INH SOL UD 3ML (DUONEB)(J7620) NEB ×4 (02:00→20:17)
[2018-08-05] MEDS: HEPARIN SOD (PORCINE) 5000 UNITS/ML VIAL SC ×3 (05:09→21:47)
[2018-08-05] MEDS: PIPERACILLIN/TAZOBACTAM SOD 3.375 GM in D5W MINI-BAG PLUS 50 ML IV ×3 (05:09→21:47)
[2018-08-05 06:45] LABS: HEMATOCRIT 36.5 % (42.0-52.0); HEMOGLOBIN 11.7 g/dl (13.5-17.5); MEAN CORPUSCULAR HEMOGLOBIN 30.5 pg (27.0-33.0); MEAN CORPUSCULAR HGB CONC 32.1 g/dl (32.0-36.5); MEAN CORPUSCULAR VOLUME 95.3 fl (80.0-96.0); PLATELET COUNT, AUTOMATED 167 10^3/uL (150-450); RED BLOOD COUNT 3.83 10^6/uL (4.30-6.10); RED CELL DISTRIBUTION WIDTH 15.8 % (11.5-14.5); WHITE BLOOD COUNT 4.6 10^3/uL (4.0-10.0)
[2018-08-05 07:13] LABS: ANION GAP 5 MEQ/L (8-16); BLOOD UREA NITROGEN 18 MG/DL (7-18); C REACTIVE PROTEIN QUANTITATIV 4.86 MG/DL (0.00-0.30); CALCIUM LEVEL 8.4 MG/DL (8.8-10.2); CARBON DIOXIDE LEVEL 33 MEQ/L (21-32); CHLORIDE LEVEL 111 MEQ/L (98-107); CREATININE FOR GFR 1.21 MG/DL (0.70-1.30); GLOMERULAR FILTRATION RATE > 60.0 (>35); GLUCOSE, FASTING 86 MG/DL (70-100); POTASSIUM SERUM 3.7 MEQ/L (3.5-5.1); SODIUM LEVEL 149 MEQ/L (136-145)
[2018-08-05] MEDS: POTASSIUM CHLORIDE 10% LIQ 20 MEQ/15 ML UDC PO ×2 (08:11→21:48)
[2018-08-05] MEDS: MULTIVITAMINS/MINERALS THERAP 1 TAB PO (08:11)
[2018-08-05] MEDS: DOCUSATE SOD LIQ 100MG/10ML UDC PO ×2 (08:11→21:48)
[2018-08-05] MEDS: BRIMONIDINE 0.1% OPHTH SOLN 5 ML OU (08:12)
[2018-08-05] MEDS: NEOSPORIN TOP OINT 15GM TOP ×2 (08:12→21:48)
[2018-08-05] MEDS ORDERED: guaiFENesin SYRUP 200 MG/10 ML UDC PO (15:15)
[2018-08-05] MEDS: D5W 1,000 ML IV (15:30)
[2018-08-05] MEDS: FUROSEMIDE 40 MG/4 ML VIAL (J1940) IV (15:30)
[2018-08-05] MEDS: MIRTAZAPINE 15 MG TAB PO (21:48)
[2018-08-05 22:21] LABS: ANION GAP 4 MEQ/L (8-16); BLOOD UREA NITROGEN 15 MG/DL (7-18); CALCIUM LEVEL 7.9 MG/DL (8.8-10.2); CARBON DIOXIDE LEVEL 33 MEQ/L (21-32); CHLORIDE LEVEL 109 MEQ/L (98-107); CREATININE FOR GFR 1.18 MG/DL (0.70-1.30); GLOMERULAR FILTRATION RATE > 60.0 (>35); GLUCOSE, FASTING 105 MG/DL (70-100); POTASSIUM SERUM 3.4 MEQ/L (3.5-5.1); SODIUM LEVEL 146 MEQ/L (136-145)
[2018-08-06] MEDS: IPRATROPIUM 0.5MG/ALBUTEROL 2.5MG INH SOL UD 3ML (DUONEB)(J7620) NEB ×4 (02:00→20:05)
[2018-08-06] MEDS: PIPERACILLIN/TAZOBACTAM SOD 3.375 GM in D5W MINI-BAG PLUS 50 ML IV ×3 (05:09→21:19)
[2018-08-06] MEDS: D5W 1,000 ML IV (05:09)
[2018-08-06] MEDS: HEPARIN SOD (PORCINE) 5000 UNITS/ML VIAL SC ×3 (05:09→21:19)
[2018-08-06 06:55] LABS: HEMATOCRIT 37.9 % (42.0-52.0); MEAN CORPUSCULAR HEMOGLOBIN 30.4 pg (27.0-33.0); MEAN CORPUSCULAR HGB CONC 31.7 g/dl (32.0-36.5); MEAN CORPUSCULAR VOLUME 95.9 fl (80.0-96.0); PLATELET COUNT, AUTOMATED 167 10^3/uL (150-450); RED BLOOD COUNT 3.95 10^6/uL (4.30-6.10); RED CELL DISTRIBUTION WIDTH 15.7 % (11.5-14.5); WHITE BLOOD COUNT 4.7 10^3/uL (4.0-10.0)
[2018-08-06 07:27] LABS: ANION GAP 6 MEQ/L (8-16); BLOOD UREA NITROGEN 14 MG/DL (7-18); C REACTIVE PROTEIN QUANTITATIV 3.04 MG/DL (0.00-0.30); CALCIUM LEVEL 7.6 MG/DL (8.8-10.2); CARBON DIOXIDE LEVEL 34 MEQ/L (21-32); CHLORIDE LEVEL 106 MEQ/L (98-107); CREATININE FOR GFR 1.12 MG/DL (0.70-1.30); GLOMERULAR FILTRATION RATE > 60.0 (>35); GLUCOSE, FASTING 90 MG/DL (70-100); POTASSIUM SERUM 3.1 MEQ/L (3.5-5.1); SODIUM LEVEL 146 MEQ/L (136-145)
[2018-08-06] MEDS: DOCUSATE SOD LIQ 100MG/10ML UDC PO ×2 (10:09→21:18)
[2018-08-06] MEDS: POTASSIUM CHLORIDE 10% LIQ 20 MEQ/15 ML UDC PO ×2 (10:09→21:18)
[2018-08-06] MEDS: KCL 10MEQ/100ML SWI (KRUN) 10 MEQ in APPROPRIATE DILUENT 1 EA IV ×3 (10:10→17:00)
[2018-08-06] MEDS: MULTIVITAMINS/MINERALS THERAP 1 TAB PO (10:10)
[2018-08-06] MEDS: TORSEMIDE 10 MG TABLET PO (10:10)
[2018-08-06] MEDS: NEOSPORIN TOP OINT 15GM TOP ×2 (10:11→21:19)
[2018-08-06] MEDS: BRIMONIDINE 0.1% OPHTH SOLN 5 ML OU (10:11)
[2018-08-06] MEDS: POTASSIUM CHLORIDE INJ 40 MEQ in D5W 1,000 ML IV (10:56)
[2018-08-06 13:53] LABS: ANION GAP 4 MEQ/L (8-16); BLOOD UREA NITROGEN 14 MG/DL (7-18); CALCIUM LEVEL 7.8 MG/DL (8.8-10.2); CARBON DIOXIDE LEVEL 32 MEQ/L (21-32); CHLORIDE LEVEL 108 MEQ/L (98-107); GLOMERULAR FILTRATION RATE > 60.0 (>35); GLUCOSE, FASTING 122 MG/DL (70-100); MAGNESIUM LEVEL 2.3 MG/DL (1.8-2.4); POTASSIUM SERUM 3.5 MEQ/L (3.5-5.1); SODIUM LEVEL 144 MEQ/L (136-145)
[2018-08-06] MEDS ORDERED: KCL 10MEQ IN STERILE WATER 100ML As Ordered (16:57)
[2018-08-06] MEDS ORDERED: HEPARIN SOD (PORCINE) 5000 UNITS/ML VIAL As Ordered (21:07)
[2018-08-06] MEDS: MIRTAZAPINE 15 MG TAB PO (21:18)
[2018-08-07] MEDS: IPRATROPIUM 0.5MG/ALBUTEROL 2.5MG INH SOL UD 3ML (DUONEB)(J7620) NEB ×4 (02:00→20:00)
[2018-08-07] MEDS: HEPARIN SOD (PORCINE) 5000 UNITS/ML VIAL SC ×3 (05:21→22:04)
[2018-08-07] MEDS: PIPERACILLIN/TAZOBACTAM SOD 3.375 GM in D5W MINI-BAG PLUS 50 ML IV (05:21)
[2018-08-07 07:06] LABS: HEMATOCRIT 35.9 % (42.0-52.0); HEMOGLOBIN 11.7 g/dl (13.5-17.5); MEAN CORPUSCULAR HGB CONC 32.6 g/dl (32.0-36.5); PLATELET COUNT, AUTOMATED 149 10^3/uL (150-450); RED BLOOD COUNT 3.78 10^6/uL (4.30-6.10); RED CELL DISTRIBUTION WIDTH 15.5 % (11.5-14.5)
[2018-08-07 07:32] LABS: ANION GAP 4 MEQ/L (8-16); BLOOD UREA NITROGEN 13 MG/DL (7-18); C REACTIVE PROTEIN QUANTITATIV 2.29 MG/DL (0.00-0.30); CALCIUM LEVEL 8.1 MG/DL (8.8-10.2); CARBON DIOXIDE LEVEL 33 MEQ/L (21-32); CHLORIDE LEVEL 109 MEQ/L (98-107); CREATININE FOR GFR 1.11 MG/DL (0.70-1.30); GLOMERULAR FILTRATION RATE > 60.0 (>35); GLUCOSE, FASTING 75 MG/DL (70-100); POTASSIUM SERUM 3.8 MEQ/L (3.5-5.1); SODIUM LEVEL 146 MEQ/L (136-145)
[2018-08-07] MEDS: BRIMONIDINE 0.1% OPHTH SOLN 5 ML OU (09:13)
[2018-08-07] MEDS: NEOSPORIN TOP OINT 15GM TOP ×2 (09:13→22:05)
[2018-08-07] MEDS: MULTIVITAMINS/MINERALS THERAP 1 TAB PO (09:13)
[2018-08-07] MEDS: POTASSIUM CHLORIDE 10% LIQ 20 MEQ/15 ML UDC PO ×2 (09:14→22:04)
[2018-08-07] MEDS: DOCUSATE SOD LIQ 100MG/10ML UDC PO ×2 (09:14→22:04)
[2018-08-07] MEDS: TORSEMIDE 10 MG TABLET PO (09:14)
[2018-08-07] MEDS: LevoFLOXacin 500 MG TABLET PO (11:34)
[2018-08-07] MEDS ORDERED: HEPARIN SOD (PORCINE) 5000 UNITS/ML VIAL As Ordered (21:52)
[2018-08-07] MEDS: MIRTAZAPINE 15 MG TAB PO (22:04)
[2018-08-07] MEDS: AUGMENTIN 875 MG TAB PO (22:04)
[2018-08-08] MEDS: IPRATROPIUM 0.5MG/ALBUTEROL 2.5MG INH SOL UD 3ML (DUONEB)(J7620) NEB ×2 (02:00→08:07)
[2018-08-08] MEDS: LevoFLOXacin 500 MG TABLET PO (05:25)
[2018-08-08] MEDS: HEPARIN SOD (PORCINE) 5000 UNITS/ML VIAL SC (05:25)
[2018-08-08 06:15] LABS: HEMATOCRIT 38.1 % (42.0-52.0); HEMOGLOBIN 12.3 g/dl (13.5-17.5); MEAN CORPUSCULAR HEMOGLOBIN 30.5 pg (27.0-33.0); MEAN CORPUSCULAR HGB CONC 32.3 g/dl (32.0-36.5); MEAN CORPUSCULAR VOLUME 94.5 fl (80.0-96.0); PLATELET COUNT, AUTOMATED 164 10^3/uL (150-450); RED BLOOD COUNT 4.03 10^6/uL (4.30-6.10); RED CELL DISTRIBUTION WIDTH 15.5 % (11.5-14.5); WHITE BLOOD COUNT 3.5 10^3/uL (4.0-10.0)
[2018-08-08 06:37] LABS: ANION GAP 3 MEQ/L (8-16); BLOOD UREA NITROGEN 14 MG/DL (7-18); C REACTIVE PROTEIN QUANTITATIV 2.35 MG/DL (0.00-0.30); CALCIUM LEVEL 8.6 MG/DL (8.8-10.2); CARBON DIOXIDE LEVEL 35 MEQ/L (21-32); CHLORIDE LEVEL 108 MEQ/L (98-107); CREATININE FOR GFR 1.15 MG/DL (0.70-1.30); GLOMERULAR FILTRATION RATE > 60.0 (>35); GLUCOSE, FASTING 80 MG/DL (70-100); POTASSIUM SERUM 3.9 MEQ/L (3.5-5.1); SODIUM LEVEL 146 MEQ/L (136-145)
[2018-08-08] MEDS: TORSEMIDE 10 MG TABLET PO (09:09)
[2018-08-08] MEDS: DOCUSATE SOD LIQ 100MG/10ML UDC PO (09:09)
[2018-08-08] MEDS: MULTIVITAMINS/MINERALS THERAP 1 TAB PO (09:09)
[2018-08-08] MEDS: AUGMENTIN 875 MG TAB PO (09:09)
[2018-08-08] MEDS: POTASSIUM CHLORIDE 10% LIQ 20 MEQ/15 ML UDC PO (09:10)
[2018-08-08] MEDS: NEOSPORIN TOP OINT 15GM TOP (09:16)
[2018-08-08] MEDS: BRIMONIDINE 0.1% OPHTH SOLN 5 ML OU (09:47)
== END 2018-08-08 13:05 | DRG 177 ==
LOC: M ED 21:23 → M ED INP 08-03 05:50 → M MS5PR 08-03 13:15
DX: J69.0 Pneumonitis due to inhalation of food and vomit (principal); I50.33 Acute on chronic diastolic (congestive) heart failure; N39.0 Urinary tract infection, site not specified; E87.0 Hyperosmolality and hypernatremia; I11.0 Hypertensive heart disease with heart failure; E78.5 Hyperlipidemia, unspecified; N40.0 Benign prostatic hyperplasia without lower urinary tract symptoms; M19.90 Unspecified osteoarthritis, unspecified site; H40.9 Unspecified glaucoma; R13.10 Dysphagia, unspecified; Z66 Do not resuscitate; E87.6 Hypokalemia; I34.1 Nonrheumatic mitral (valve) prolapse; I27.20 Pulmonary hypertension, unspecified; F32.9 Major depressive disorder, single episode, unspecified; Z95.0 Presence of cardiac pacemaker; Z98.41 Cataract extraction status, right eye; Z98.42 Cataract extraction status, left eye; Z79.899 Other long term (current) drug therapy; B96.5 Pseudomonas (aeruginosa) (mallei) (pseudomallei) as the cause of diseases classified elsewhere; B95.2 Enterococcus as the cause of diseases classified elsewhere; Z91.11 Patient's noncompliance with dietary regimen

== ENCOUNTER 2018-08-08 21:46 | Emergency (ER) | payer MEDICARE, MEDICAID | END 2018-08-09 07:23 | disposition home or self-care (01) | LOC: M ED 08-09 07:23 | DX: I10 Essential (primary) hypertension; R13.10 Dysphagia, unspecified; H40.9 Unspecified glaucoma; F03.90 Unspecified dementia, unspecified severity, without behavioral disturbance, psychotic disturbance, mood disturbance, and anxiety | CPT/HCPCS: 93041 ==

== ENCOUNTER → 2018-08-30 | Outpatient (REF) | payer MEDICARE, MEDICAID ==
[2018-08-30 10:50] LABS: ANION GAP 7 MEQ/L (8-16); BLOOD UREA NITROGEN 20 MG/DL (7-18); CALCIUM LEVEL 8.1 MG/DL (8.8-10.2); CARBON DIOXIDE LEVEL 30 MEQ/L (21-32); CHLORIDE LEVEL 108 MEQ/L (98-107); GLOMERULAR FILTRATION RATE > 60.0 (>35); GLUCOSE, FASTING 82 MG/DL (70-100); POTASSIUM SERUM 3.9 MEQ/L (3.5-5.1); SODIUM LEVEL 145 MEQ/L (136-145)
== END ==
DX: N18.9 Chronic kidney disease, unspecified (principal)
CPT/HCPCS: 80048

== ENCOUNTER → 2018-09-07 | Outpatient (CLI) | payer MEDICARE, MEDICAID ==
[2018-09-07 13:41] LABS: ANION GAP 5 MEQ/L (8-16); BLOOD UREA NITROGEN 18 MG/DL (7-18); CALCIUM LEVEL 8.3 MG/DL (8.8-10.2); CARBON DIOXIDE LEVEL 33 MEQ/L (21-32); CHLORIDE LEVEL 107 MEQ/L (98-107); CREATININE FOR GFR 1.32 MG/DL (0.70-1.30); GLOMERULAR FILTRATION RATE 54.5 (>35); GLUCOSE, FASTING 84 MG/DL (70-100); POTASSIUM SERUM 3.7 MEQ/L (3.5-5.1); SODIUM LEVEL 145 MEQ/L (136-145)
== END ==
LOC: M SMT 10:18
DX: N18.9 Chronic kidney disease, unspecified (principal)
CPT/HCPCS: 80048

== ENCOUNTER 2018-10-23 02:10 | Inpatient (IN) | payer MEDICARE, MEDICAID ==
[~2018-10-23] VITALS: Ht 180.3 cm; Wt 70.3 kg
[~2018-10-23 02:10] MED LIST changes: +ACET1TAB55 PO; +AMOX875T2 PO; +AZOP0.2S OD; -AZOP0.2S OU; +CEFD1CAP8 PO; +FLOM0.4C39 PO; -FLOM5CAP PO; +IPRA0.00 INH; -IPRASOL4 INH; +KLOR10TA76 PO; +KLOR20TA42 PO; -LISI2.5T3 PO; +LISI2.5T5 PO; +MILK120011 PO; -MILKSUS PO; +ONDA4TAB6 PO; -POTA10CA PO; +POTA20EL PO; -POTA20TA PO; +REME15TA PO; +STOO100C PO; +TORS20TA2 PO; +VITMTA PO
--- NOTE | 2018-10-23 03:42 | REPVR ---
EXAM: CT Head Without Contrast EXAM DATE/TIME: 10/23/2018 2:59 AM CLINICAL HISTORY: 88 years old, male; Injury or trauma; Fall; Initial encounter; Blunt trauma (contusions or hematomas); Consciousness not specified TECHNIQUE: Axial computed tomography images of the head/brain without contrast. All CT scans at this facility use at least one of these dose optimization techniques: automated exposure control; mA and/or kV adjustment per patient size (includes targeted exams where dose is matched to clinical indication); or iterative reconstruction. COMPARISON: CT Head without contrast 04/07/2018 4:06 PM FINDINGS: Brain: There is minimal patchy low attenuation of deep white matter. There is mild prominence of the peripheral sulci. Ventricles: There is mild prominence of the central ventricular system. Bones/joints: Normal. No acute fracture. Sinuses: Normal as visualized. No acute sinusitis. Mastoid air cells: Normal as visualized. No mastoid effusion. Soft tissues: Normal. IMPRESSION: 1. There has been no change since 04/07/2018. No acute interval intracranial process is identified. 2. Minimal chronic ischemic white matter change and mild atrophy. Electronically signed by: Moy Maynard On 10/23/2018 03:42:17 AM
--- NOTE | 2018-10-23 04:50 | REPVR ---
EXAM: CT Left Lower Extremity Without IV Contrast. Hip EXAM DATE/TIME: 10/23/2018 4:18 AM CLINICAL HISTORY: 88 years old, male; Pain; Hip; Left; Additional info: Intractable pain after fall TECHNIQUE: CT of the Left lower extremity without intravenous contrast was performed. Exam focused on the hip. All CT scans at this facility use at least one of these dose optimization techniques: automated exposure control; mA and/or kV adjustment per patient size (includes targeted exams where dose is matched to clinical indication); or iterative reconstruction. COMPARISON: CR Hip,AP,LAT to include Pelvis LEFT 10/23/2018 3:11 AM FINDINGS: Tubes, catheters and devices: There is a Sanchez catheter in the bladder. Bones/joints: No fracture is seen. Minimal degenerative change of the left hip. Soft tissues: Normal. IMPRESSION: 1. Sanchez catheter in the bladder. 2. Minimal degenerative change. 3. Otherwise negative CT left hip. No fractures. Electronically signed by: Moy Maynard On 10/23/2018 04:50:08 AM
[2018-10-23] MEDS ORDERED: traMADol 50 MG TAB PO ONE (05:45)
[2018-10-23] MEDS ORDERED: KLOR10TA76 PO (05:54)
[2018-10-23] MEDS ORDERED: TORS20TA2 PO (05:54)
[2018-10-23] MEDS ORDERED: ONDANSETRON 4MG/2ML VIAL (J2405) IV PRN (06:30)
[2018-10-23] MEDS ORDERED: BISACODYL 5 MG TAB PO PRN (06:30)
[2018-10-23] MEDS ORDERED: IPRATROPIUM 0.5MG/ALBUTEROL 2.5MG INH SOL UD 3ML (DUONEB)(J7620) NEB PRN (06:30)
[2018-10-23] MEDS ORDERED: BISACODYL 10 MG SUPP PR PRN (06:30)
--- NOTE | 2018-10-23 06:32 | HPEPDOC ---
[facility] [place] History & Physical Date of Admission Oct 23, 2018 Attending Physician: JOHN FERNANDO MD History and Physical CHIEF COMPLAINT: [Fall, left hip pain] HISTORY OF PRESENT ILLNESS: [Pt is an 88 yo male hypertension, hyponatremia, BPH, osteoarthritis, glaucoma, diastolic CHF, complete heart block status post pacemaker who fell at the [facility] living yesterday evening and landed on his left side. Patient states that he was in his bathroom , emptied Sanchez and was adjusting his Sanchez and was tugging on it when he fell backward and hit the wall, subsequently fell on his left side causing trauma to his left hip. Patient denies of any spitting factors such as chest pain, shortness of breath, dizziness, headache, or any pain that medical injury to this. Patient also denies of any prodrome illness prior to this. Patient states that it was just an accidental fall. Patient was evaluated in the emergency room had CT of the head which showed no acute process and CT of the left extremity which showed no fracture as well. Patient is being admitted due to intractable pain and inability to ambulate as he currently resides at [facility]. Patient walks with a walker. Patient has been in for further evaluation and treatment for intractable left hip pain and inability to bear weight on his left hip. Patient just prior to being admission was given tramadol on foresight patient still unable to bear weight without pain. Review system: 10 point review systems negative than those described in HPI PAST MEDICAL HISTORY: 1. HTN. 2. Hyperlipidemia. 3. BPH. 4. Osteoarthritis 5. Glaucoma 6. Chronic Diastolic congestive heart failure with EF of 65-70%, moderately severe MR and pulmonary HTN (echo 05/13/2018) 7. Complete heart block s/p Pacemaker PAST SURGICAL HISTORY: 1. Pacemaker 2. Tonsillectomy and adenoidectomy 3. b/l cataract surgery SOCIAL HISTORY: Resides in: [facility] living at [facility]. Denies of alcohol, tobacco, illicit drug abuse FAMILY HISTORY: non-contributory ALLERGIES: Please see below. HOME MEDICATIONS: Please see below. PHYSICAL EXAMINATION: VITAL SIGNS: Please see below GENERAL APPEARANCE: Resting comfortably HEENT: Normocephalic, PERRLA, Mucous moist, CARDIOVASCULAR: S1,S2, pulse present, regularly, regular, LUNGS: Equal air entry b/l, no wheezes or crackle ABDOMEN: Soft, BS present, no tenderness, no guarding GENITOURINARY: Sanchez EXTREMITIES: B/L no edema, capillary refill present SKIN: Warm, No fever NEUROLOGICAL: Cranial nerves grossly intact PSYCHIATRIC: Normal mood and affect for current situation LABORATORY DATA: See below. IMAGING: [CT head: 1. There has been no change since 04/07/2018. No acute interval intracranial process is identified. 2. Minimal chronic ischemic white matter change and mild atrophy. Extremity CT: 1. Sanchez catheter in the bladder. 2. Minimal degenerative change. 3. Otherwise negative CT left hip. No fractures. ] MICROBIOLOGY: none No labs to review EKG: HR 85 paced with PVC Assessment and plan: Left hip pain and history of mechanical fall, unable to bear weight or ambulate due to pain -CT of the left hip negative for fracture -Fall precaution -Pain management -PT, orthopedic consult as needed -TNI, UA, and basic lab ordered and still pending Diastolic CHF - Pt does not appear to be in decompensated CHF and denied of any shortness of breath -Basic lab ordered -Resume hoe torsemide if no renal dysfunction on basic lab HTN - continue home meds once basic lab resulted Hyperlipidemia. -Patient not on any home therapy, please follow up with PCP BPH. -Continue Sanchez Osteoarthritis -Tylenol when necessary Glaucoma - continue home meds DVT prophy: Heparin SC CODE STATUS: DNR, DNI, Limited medical interventions. Based on previous ad mission. Vital Signs Vital Signs Date Time Temp Pulse Resp B/P (MAP) Pulse Ox O2 Delivery O2 Flow Rate FiO2 10/23/18 05:40 20 10/23/18 05:40 95 95 10/23/18 05:36 103/59 (74) 10/23/18 04:41 97.1 Room Air Home Medications Scheduled Brimonidine Tartrate 0.1% (Alphagan P) 100 Drop/5 Ml Soln, 1 DROP OU DAILY Brinzolamide (Azopt) 1 % Ana Paula, 1 DROP OD BID Calcium Pantothenate (Calcium Pantothenate) 500 Mg Tab, 500 MG PO TID TAKES AT 0600, 1200 AND 1800 Docusate Sodium (Docusate Sodium) 100 Mg Cap, 100 MG PO BID Mirtazapine (Remeron) 15 Mg Tab, 15 MG PO QHS Multivitamins *[facility] [place] STOCKED* (Thera M Plus *[facility] STOCKED*) 1 Tab Tab, 1 TAB PO DAILY Potassium Chloride (Klor-Con M10) 10 Meq Tabcr, 30 MEQ PO BID Torsemide (Torsemide) 20 Mg Tab, 20 MG PO QPM 1400 Torsemide (Torsemide) 20 Mg Tab, 40 MG PO DAILY 0900 Scheduled PRN Acetaminophen (Acetaminophen) 325 Mg Tab, 325 MG PO Q6H PRN for PAIN / FEVER Albuterol/Ipratropium (Ipratropium Bannister/Albut 0.5-2.5 (3) mg/3Ml) 1 Rimma Rimma, 1 DOSE INH TID PRN for WHEEZING Allergies Coded Allergies: No Known Allergies (Unverified , 07/27/15) CHANDRAKANT GUTIERREZ MD Oct 23, 2018 06:32
[2018-10-23 06:55] LABS: BASO % 0.2 % (0.0-1.0); HEMATOCRIT 35.9 % (42.0-52.0); HEMOGLOBIN 11.9 g/dl (13.5-17.5); LYMPH # 0.7 10^3/uL (1.5-4.5); LYMPH % 5.1 % (24.0-44.0); MEAN CORPUSCULAR HEMOGLOBIN 30.4 pg (27.0-33.0); MEAN CORPUSCULAR HGB CONC 33.1 g/dl (32.0-36.5); MEAN CORPUSCULAR VOLUME 91.8 fl (80.0-96.0); MONO # 1.1 10^3/uL (0.0-0.8); MONO % 8.4 % (0.0-5.0); NEUTROPHILS # 11.1 10^3/uL (1.8-7.7); NEUTROPHILS % 85.8 % (36.0-66.0); RED BLOOD COUNT 3.91 10^6/uL (4.30-6.10); WHITE BLOOD COUNT 12.9 10^3/uL (4.0-10.0)
[2018-10-23] MEDS: HEPARIN SOD (PORCINE) 5000 UNITS/ML VIAL SC SCH ×3 (07:16→16:18)
[2018-10-23 07:28] LABS: BLOOD UREA NITROGEN 21 MG/DL (7-18); CALCIUM LEVEL 8.2 MG/DL (8.8-10.2); CARBON DIOXIDE LEVEL 29 MEQ/L (21-32); CHLORIDE LEVEL 109 MEQ/L (98-107); CPK CREATINE PHOSPHOKINASE 75 U/L (39-308); CREATININE FOR GFR 1.21 MG/DL (0.70-1.30); GLOMERULAR FILTRATION RATE > 60.0 (>35); GLUCOSE, FASTING 112 MG/DL (70-100); MAGNESIUM LEVEL 1.9 MG/DL (1.8-2.4); MB/CK RELATIVE INDEX 1.47 (< OR =4); POTASSIUM SERUM 3.7 MEQ/L (3.5-5.1); SODIUM LEVEL 143 MEQ/L (136-145); TROPONIN I < 0.02 NG/ML (< 0.10)
[2018-10-23 07:29] LABS: PLATELET COUNT, AUTOMATED 97 10^3/uL (150-450)
[2018-10-23] MEDS ORDERED: METAL LOCK LOOP XX ONE (08:15)
[2018-10-23] MEDS ORDERED: PILL CRUSHER/CUTTER 1 EACH XX ONE (08:24)
[2018-10-23] MEDS: SENOKOT S TAB PO SCH ×2 (08:29→21:56)
[2018-10-23] MEDS: MULTIVITAMINS/MINERALS THERAP 1 TAB PO SCH (08:30)
[2018-10-23] MEDS: BRIMONIDINE 0.1% OPHTH SOLN 5 ML OU SCH (08:30)
--- NOTE | 2018-10-23 09:12 | REP ---
Clinical: Pain with recent trauma/fall. Technique: AP view of the pelvis with neutral and frog lateral views of the left hip. Findings: Advanced age-related osteopenia and moderate degenerative changes. No obvious acute fracture or dislocation. Surrounding soft tissues are grossly unremarkable. Impression: Osteopenia and arthritic degenerative changes. No acute fracture dislocation. Electronically Signed by Edy Villanueva MD 10/23/2018 09:03 A
[2018-10-23] MEDS: traMADol 50 MG TAB PO PRN ×2 (10:21→21:57)
[2018-10-23 14:47] LABS: CK-MB VALUE MASS < 1.0 NG/ML (<3.6); CPK CREATINE PHOSPHOKINASE 45 U/L (39-308); MB/CK RELATIVE INDEX 2.22 (< OR =4); TROPONIN I < 0.02 NG/ML (< 0.10)
[2018-10-23 15:08] VITALS: BP 109/62
[2018-10-23 16:00] VITALS: BP 110/89
--- NOTE | 2018-10-23 17:27 | ECGEPIP ---
Stationary ECG Study [facility] - ED Test Date: 2018-10-23 Pat Name: NAKUL BERNARDO Department: Room: [place] [address] Gender: M Social Work Supervisor: benigno : 1930 Requested By: SORAIDA Keene Order Number: [id number] Reading MD: Cyndy Rodriguez Measurements Intervals [place] Rate: 85 P: 67 HI: 195 QRS: -78 QRSD: 196 T: 92 QT: 446 QTc: 531 Interpretive Statements ELECTRONIC VENTRICULAR PACEMAKER ABNORMAL RHYTHM ECG Electronically Signed On 10-23-2018 17:26:36 EST by Cyndy Rodriguez
[2018-10-23] MEDS: MIRTAZAPINE 15 MG TAB PO SCH (21:56)
[2018-10-23 22:00] VITALS: BP 106/58
[2018-10-23 22:00] LABS: CK-MB VALUE MASS < 1.0 NG/ML (<3.6); CPK CREATINE PHOSPHOKINASE 40 U/L (39-308); TROPONIN I < 0.02 NG/ML (< 0.10)
[2018-10-24 02:00] VITALS: BP 127/72
[2018-10-24 05:49] LABS: HEMATOCRIT 36.1 % (42.0-52.0); HEMOGLOBIN 11.7 g/dl (13.5-17.5); MEAN CORPUSCULAR HEMOGLOBIN 29.8 pg (27.0-33.0); MEAN CORPUSCULAR HGB CONC 32.4 g/dl (32.0-36.5); MEAN CORPUSCULAR VOLUME 92.1 fl (80.0-96.0); RED BLOOD COUNT 3.92 10^6/uL (4.30-6.10); WHITE BLOOD COUNT 8.7 10^3/uL (4.0-10.0)
[2018-10-24 05:51] LABS: PLATELET COUNT, AUTOMATED 87 10^3/uL (150-450)
[2018-10-24 06:00] VITALS: BP 106/56
[2018-10-24 06:04] LABS: BLOOD UREA NITROGEN 21 MG/DL (7-18); CALCIUM LEVEL 8.3 MG/DL (8.8-10.2); CARBON DIOXIDE LEVEL 31 MEQ/L (21-32); CHLORIDE LEVEL 112 MEQ/L (98-107); CREATININE FOR GFR 1.13 MG/DL (0.70-1.30); GLOMERULAR FILTRATION RATE > 60.0 (>35); GLUCOSE, FASTING 99 MG/DL (70-100); POTASSIUM SERUM 3.4 MEQ/L (3.5-5.1); SODIUM LEVEL 147 MEQ/L (136-145)
[2018-10-24] MEDS ORDERED: POTASSIUM CHLORIDE 10 MEQ SR TABLET PO ONE (08:30)
[2018-10-24] MEDS: MULTIVITAMINS/MINERALS THERAP 1 TAB PO SCH (09:05)
[2018-10-24] MEDS: SENOKOT S TAB PO SCH ×2 (09:07→20:43)
[2018-10-24] MEDS: traMADol 50 MG TAB PO PRN (09:07)
[2018-10-24] MEDS: BRIMONIDINE 0.1% OPHTH SOLN 5 ML OU SCH (09:08)
[2018-10-24 10:00] VITALS: BP 126/75
--- NOTE | 2018-10-24 11:36 | IPNPDOC ---
Subjective Date Seen The patient was seen on 10/24/18. Subjective Chief Complaint/HPI Patient seen and examined at the bedside. Reports that his left hip pain is improving with the current regimen. Denies any acute overnight events. Objective Physical Examination General Exam: Positive: Alert, Cooperative, No Acute Distress ENT Exam: Positive: Atraumatic, Mucous membr. moist/pink Neck Exam: Negative: JVD Chest Exam: Positive: Clear to auscultation, Normal air movement Heart Exam: Positive: Rate Normal, Normal S1, Normal S2 Abdomen Exam: Positive: Soft; Negative: Tenderness Extremity Exam: Positive: Other (Patient with mild tenderness to palpation on the medial aspect of the left thigh area. No tenderness on palpation of hip joint. ROM intact on hip flexion.); Negative: Swelling Assessment /Plan Plan/VTE VTE Prophylaxis Ordered?: Yes Plan Left hip pain 2/[address] of the left hip negative for fracture Fall precautions PT on board Pain control as ordered We will cont to monitor Diastolic CHF, compensated We will resume Torsemide HTN Cont meds as ordered BPH. Continue Sanchez Osteoarthritis Tylenol when necessary Glaucoma continue home meds Thrombocytopenia No clear etiology at this time No indication for transfusion at this time We will cont to monitor DVT prophylaxis SCDs/TEDs (No AC 2/2 Thrombocytopenia) Dispo--pending clinical improvement, functional optimization with PT. VS, I&O, 24H, [place] Vital Signs/I&O Vital Signs Date Time Temp Pulse Resp B/P (MAP) Pulse Ox O2 Delivery O2 Flow Rate FiO2 10/24/18 10:00 97.6 99 20 126/75 (92) 94 Room Air I&O- Last 24 Hours up to 6 AM 10/24/18 05:59 Intake Total 330 ml Output Total 850 ml Balance -520 ml Laboratory Data 24H LABS Laboratory Tests 2 10/23/18 13:59: Total Creatine Kinase 45, Creatine Kinase MB < 1.0, Creatine Kinase MB Relative Index 2.22, Troponin I < 0.02 10/23/18 21:25: Total Creatine Kinase 40, Creatine Kinase MB < 1.0, Creatine Kinase MB Relative Index 2.50, Troponin I < 0.02 10/24/18 05:24: Nucleated Red Blood Cells % (auto) 0.0, Anion Gap 4L, Glomerular Filtration Rate > 60.0, Blood Urea Nitrogen 21H, Creatinine 1.13, Sodium Level 147H, Potassium Level 3.4L, Chloride Level 112H, Carbon Dioxide Level 31, Calcium Level 8.3L CBC/BMP Laboratory Tests 10/24/18 05:24 Red Blood Count 3.92 L, Mean Corpuscular Volume 92.1, Mean Corpuscular Hemoglobin 29.8, Mean Corpuscular Hemoglobin Concent 32.4, Red Cell Distribution Width 14.6 H, Calcium Level 8.3 L KWADWO KILPATRICK MD Oct 24, 2018 11:36
[2018-10-24 14:00] VITALS: BP 124/57
[2018-10-24] MEDS: TORSEMIDE 20 MG TAB PO SCH ×2 (17:06→17:07)
[2018-10-24 18:00] VITALS: BP 113/62
[2018-10-24] MEDS: POTASSIUM CHLORIDE 10 MEQ SR TABLET PO SCH (21:00)
[2018-10-24] MEDS: MIRTAZAPINE 15 MG TAB PO SCH (21:00)
[2018-10-24 22:00] VITALS: BP 106/58
[2018-10-24] MEDS ORDERED: KCL 20MEQ IN 100ML SWI (KRUN) 20 MEQ in APPROPRIATE DILUENT 1 EA IV ONE ×2 (23:45)
[2018-10-25] MEDS: KCL 10MEQ/100ML SWI (KRUN) 10 MEQ in APPROPRIATE DILUENT 1 EA IV SCH ×2 (00:30→01:46)
[2018-10-25 02:00] VITALS: BP 101/56
[2018-10-25 06:00] VITALS: BP 108/51
[2018-10-25 08:13] LABS: HEMATOCRIT 39.2 % (42.0-52.0); MEAN CORPUSCULAR HGB CONC 33.2 g/dl (32.0-36.5); MEAN CORPUSCULAR VOLUME 93.3 fl (80.0-96.0); WHITE BLOOD COUNT 15.9 10^3/uL (4.0-10.0)
[2018-10-25 08:14] LABS: PLATELET COUNT, AUTOMATED 87 10^3/uL (150-450)
[2018-10-25 08:26] LABS: CALCIUM LEVEL 8.5 MG/DL (8.8-10.2); CREATININE FOR GFR 1.22 MG/DL (0.70-1.30); GLOMERULAR FILTRATION RATE 59.7 (>35); MAGNESIUM LEVEL 2.3 MG/DL (1.8-2.4); POTASSIUM SERUM 3.6 MEQ/L (3.5-5.1)
[2018-10-25] MEDS: traMADol 50 MG TAB PO PRN (08:42)
[2018-10-25 09:05] LABS: EOSINOPHILS 1 % (0-5); LYMPHOCYTES 8 % (16-52); MONOCYTES 3 % (0-8); NEUTROPHILS 84 % (35-75)
[2018-10-25 09:06] LABS: ANISOCYTOSIS 1+; PLATELET ESTIMATE DECREASED (NORMAL)
[2018-10-25] MEDS: SENOKOT S TAB PO SCH ×2 (09:46→21:00)
[2018-10-25] MEDS: MULTIVITAMINS/MINERALS THERAP 1 TAB PO SCH (09:46)
[2018-10-25] MEDS: POTASSIUM CHLORIDE 10 MEQ SR TABLET PO SCH ×2 (09:46→21:00)
[2018-10-25] MEDS: TORSEMIDE 20 MG TAB PO SCH ×2 (09:46→16:36)
[2018-10-25] MEDS: BRIMONIDINE 0.1% OPHTH SOLN 5 ML OU SCH ×2 (09:55→10:02)
[2018-10-25] MEDS: MORPHINE 4 MG/ML 1ML VIAL/SYRINGE (J2270) IV PRN ×2 (09:58→20:21)
[2018-10-25 14:00] VITALS: BP 105/55
[2018-10-25 16:44] LABS: HEMATOCRIT 37.1 % (42.0-52.0); HEMOGLOBIN 12.1 g/dl (13.5-17.5); MEAN CORPUSCULAR HEMOGLOBIN 30.1 pg (27.0-33.0); MEAN CORPUSCULAR HGB CONC 32.6 g/dl (32.0-36.5); MEAN CORPUSCULAR VOLUME 92.3 fl (80.0-96.0); RED BLOOD COUNT 4.02 10^6/uL (4.30-6.10); WHITE BLOOD COUNT 13.4 10^3/uL (4.0-10.0)
[2018-10-25 16:46] LABS: PLATELET COUNT, AUTOMATED 79 10^3/uL (150-450)
--- NOTE | 2018-10-25 16:47 | IPN ---
DATE: 10/25/2018 SUBJECTIVE: The patient is seen and examined in the room today. The patient is not oriented during the encounter. The patient has been complaining about persistent hip pain. Per staff, switching position will make the patient more comfortable. No fever or chills noted. OBJECTIVE: VITAL SIGNS: Temperature is 97.1, pulse is 90, respiratory rate 18, blood pressure 108/51, pulse oximetry 92% in room air. GENERAL: The patient is alert and awake, mild to moderate distress secondary to persistent hip pain. HEENT: Normocephalic, atraumatic. CARDIOVASCULAR: Positive S1, S2, regular rate. LUNGS: Clear to auscultation bilaterally. ABDOMEN: Soft, nontender. EXTREMITIES: No edema. LABORATORY DATA: WBC is 15.9, hemoglobin 13, hematocrit 39.2, platelet count is 87. Sodium is 146, potassium 3.6, chloride 111, carbon dioxide 28, BUN 23, creatinine 1.22, GFR is 59.7, fasting glucose 104, calcium 8.5, magnesium 2.3. ASSESSMENT AND PLAN: 1. Left hip pain status post mechanical fall. The patient had a CT of the left hip which shows no fractures. The patient is on IV morphine for pain control. The patient has been refusing oral medications. 2. Diastolic dysfunction. The patient is on torsemide. However, per record, the patient has been refusing medications. We will continue to monitor the patient's fluid status. Currently, no sign of fluid overload. 3. Hypertension. Blood pressure in the satisfactory range. The patient is on diuretic. 4. Leukocytosis. Etiology unknown at this moment. No fever or chills noted. White count 15.9. We will follow closely. 5. Altered mental status change. At the time of the encounter, the patient is not fully oriented. The patient did have significant pain from the fall. The patient is on pain medication. Continue to assess the patient's mental status. The patient is from assisted-living facility. 6. Thrombocytopenia. Continue to monitor. No significant changes in the last 24 hours. No sign of bleeding. 7. Glaucoma. Continue eye drops. 8. Deep vein thrombosis (DVT) prophylaxis, on thromboembolic-deterrent stockings (TEDS), compression. The patient has thrombocytopenia.
[2018-10-25 17:32] LABS: ATYPICAL LYMPH 3 % (0-5); LYMPHOCYTES 2 % (16-52); MONOCYTES 8 % (0-8); NEUTROPHILS 85 % (35-75); PLATELET ESTIMATE DECREASED (NORMAL)
[2018-10-25 19:38] LABS: ERYTHROCYTE SEDIMENTATION RATE 45 mm/hr (0-30)
[2018-10-25] MEDS: MIRTAZAPINE 15 MG TAB PO SCH (21:00)
[2018-10-25 22:00] VITALS: BP 102/64
[2018-10-26 02:00] VITALS: BP 100/60
[2018-10-26 06:00] VITALS: BP 106/70
[2018-10-26] MEDS ORDERED: LevoFLOXacin 750 MG TABLET PO SCH (06:00)
[2018-10-26 06:01] LABS: HEMATOCRIT 40.2 % (42.0-52.0); HEMOGLOBIN 12.7 g/dl (13.5-17.5); MEAN CORPUSCULAR HEMOGLOBIN 29.7 pg (27.0-33.0); MEAN CORPUSCULAR HGB CONC 31.6 g/dl (32.0-36.5); MEAN CORPUSCULAR VOLUME 94.1 fl (80.0-96.0); RED BLOOD COUNT 4.27 10^6/uL (4.30-6.10); WHITE BLOOD COUNT 15.6 10^3/uL (4.0-10.0)
[2018-10-26 06:03] LABS: PLATELET COUNT, AUTOMATED 90 10^3/uL (150-450)
[2018-10-26] MEDS: MORPHINE 4 MG/ML 1ML VIAL/SYRINGE (J2270) IV PRN ×4 (06:03→18:42)
[2018-10-26 06:28] LABS: CALCIUM LEVEL 8.8 MG/DL (8.8-10.2); CREATININE FOR GFR 1.47 MG/DL (0.70-1.30); GLOMERULAR FILTRATION RATE 48.1 (>35); MAGNESIUM LEVEL 2.5 MG/DL (1.8-2.4); POTASSIUM SERUM 4.1 MEQ/L (3.5-5.1)
--- NOTE | 2018-10-26 08:16 | REP ---
Portable chest x-ray: Single view. History: Worsening leukocytosis. Comparison study: August 04, 2018. Findings: A bipolar pacemaker remains in the right heart via the left side. Moderate cardiomegaly is again noted. There is a ill-defined area of increased density in the right upper lobe consistent with pneumonia. Stable pleural thickening is noted on the right. No infiltrate is visible on the left. There are chronically increased markings in the right base. Impression: New right upper lobe infiltrate consistent with pneumonia. Electronically Signed by Tres Martin MD 10/26/2018 08:07 A
[2018-10-26] MEDS: TORSEMIDE 20 MG TAB PO SCH (08:42)
[2018-10-26] MEDS: MULTIVITAMINS/MINERALS THERAP 1 TAB PO SCH (08:42)
[2018-10-26] MEDS: POTASSIUM CHLORIDE 10 MEQ SR TABLET PO SCH ×2 (08:42→20:19)
[2018-10-26] MEDS: BRIMONIDINE 0.1% OPHTH SOLN 5 ML OU SCH (08:42)
[2018-10-26] MEDS: SENOKOT S TAB PO SCH ×2 (08:42→20:18)
[2018-10-26] MEDS ORDERED: LevoFLOXacin IV 750 MG in APPROPRIATE DILUENT 1 EA IV SCH (09:00)
[2018-10-26] MEDS: BRINZOLAMIDE 1 % OPHTH SUSP (AZOPT) 10ML OD SCH ×2 (09:00→21:17)
[2018-10-26] MEDS ORDERED: AUGMENTIN 875 MG TAB PO SCH (09:00)
[2018-10-26] MEDS: AMPICILLIN SOD 1 GM in D5W MINI-BAG PLUS 50 ML IV SCH ×3 (10:00→21:17)
[2018-10-26] MEDS: NS 0.45% 1,000 ML IV SCH ×2 (11:16→20:19)
[2018-10-26] MEDS ORDERED: HALOPERIDOL 5 MG/ML VIAL (J1630) IM PRN ×3 (12:00→12:15)
[2018-10-26] MEDS ORDERED: HALOPERIDOL 0.5 MG TAB PO ONE (12:00)
[2018-10-26] MEDS: MEROPENEM INJ 1 GM in APPROPRIATE DILUENT 1 EA IV SCH (13:00)
--- NOTE | 2018-10-26 13:28 | IPNPDOC ---
Text Note Date of Service The patient was seen on 10/26/18. NOTE SUBJECTIVE: The patient has been seen and examined in the room multiple times today. Patient remains confused. Patient also has demonstrated aggressive behavior toward staffs. Patient also pulled out his IV line. OBJECTIVE: VITAL SIGNS: Listed below. GENERAL: Alert and awake. Patient is agitated. HEENT: Normocephalic, atraumatic. CARDIOVASCULAR: Positive S1, S2, tachycardic LUNGS: Clear to auscultation bilaterally. ABDOMEN: Soft, nontender. EXTREMITIES: No edema. LABORATORY DATA: Listed below. ASSESSMENT AND PLAN: # Metabolic encephalopathy. - Discussed with patient's sister (Ms. Gonzales) to obtain patient's mentation baseline. - Patient has elevated WBC and worsening CRP. This is suspicion that acute infectious process may be the reason for altered mental status. - Patient has chronic johnson. Patient has positive UA. Waiting to urine culture. Patient had frequent UTI with pseudomonas and E faecalis. - Patient has history of frequent aspiration PNA. Portable CXR demonstrate PNA at right upper lobe. - IV Meropenem and ampicillin ordered. Due to altered mental status, patient has refused PO medications. Patient pulled out IV access. Haldo PRN with caution. 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 # Aspiration PNA - Right upper lobe infiltrate on CXR 10/26/18. Elevated WBC. - On honey thicken Pureed diet. On meropenem. # UTI due to chronic johnson - Chronic johnson. Frequent history of pseudomonas and E Faecalis UTI. - On empirical meropenem and ampicillin. urine culture is pending. #. Left hip pain status post mechanical fall. - CT of the left hip showed no fracture. - Patient refused PO medication. On IV morphine for pain control. # Acute kidney injury - Patient has acute metal status change. Patient has refused most oral medications. Per report, patient also had poor oral intake. - Will start IV fluid when IV access is available. Diuretic is on hold. #. Diastolic dysfunction. - Due to FERNANDA from poor oral intake. Torsemide is on hold. We will continue to monitor the patient's fluid status. Currently, no sign of fluid overload. #. Hypertension. Blood pressure in the satisfactory range. The patient is on diuretic. #. Thrombocytopenia. Continue to monitor. No significant changes in the last 24 hours. No sign of bleeding. #. Glaucoma. Continue eye drops. #. Deep vein thrombosis (DVT) prophylaxis, on thromboembolic-deterrent stockings /TEDS compression. The patient has thrombocytopenia. VS,Fishbone, I+O VS, Fishbone, I+O Laboratory Tests 10/25/18 16:34 Red Blood Count 4.02 L, Mean Corpuscular Volume 92.3, Mean Corpuscular Hemoglobin 30.1, Mean Corpuscular Hemoglobin Concent 32.6, Red Cell Distribution Width 14.7 H 10/26/18 05:32 Red Blood Count 4.27 L, Mean Corpuscular Volume 94.1, Mean Corpuscular Hemoglobin 29.7, Mean Corpuscular Hemoglobin Concent 31.6 L, Red Cell Distribution Width 14.8 H, Calcium Level 8.8 Vital Signs Date Time Temp Pulse Resp B/P (MAP) Pulse Ox O2 Delivery O2 Flow Rate FiO2 10/26/18 11:10 18 Room Air 10/26/18 06:00 97.1 108 106/70 (82) 97 I&O- Last 24 Hours up to 6 AM 10/26/18 06:00 Intake Total 300 ml Output Total 900 ml Balance -600 ml JODI BOB DO Oct 26, 2018 13:28
[2018-10-26 14:00] VITALS: BP 108/56
[2018-10-26] MEDS ORDERED: LORazepam 2 MG/ML VIAL (J2060) IM STA (14:04)
[2018-10-26] MEDS ORDERED: LORazepam 2 MG/ML VIAL (J2060) IV PRN (17:15)
[2018-10-26] MEDS: MIRTAZAPINE 15 MG TAB PO SCH (20:18)
[2018-10-26 22:00] VITALS: BP 116/60
[2018-10-27] MEDS: MEROPENEM INJ 1 GM in APPROPRIATE DILUENT 1 EA IV SCH ×2 (01:48→14:10)
[2018-10-27 02:00] VITALS: BP 100/62
[2018-10-27] MEDS: AMPICILLIN SOD 1 GM in D5W MINI-BAG PLUS 50 ML IV SCH ×2 (04:40→11:11)
[2018-10-27 07:32] LABS: HEMATOCRIT 36.8 % (42.0-52.0); MEAN CORPUSCULAR HEMOGLOBIN 30.4 pg (27.0-33.0); MEAN CORPUSCULAR HGB CONC 32.6 g/dl (32.0-36.5); MEAN CORPUSCULAR VOLUME 93.2 fl (80.0-96.0); RED BLOOD COUNT 3.95 10^6/uL (4.30-6.10); WHITE BLOOD COUNT 8.2 10^3/uL (4.0-10.0)
[2018-10-27 07:44] LABS: PLATELET COUNT, AUTOMATED 82 10^3/uL (150-450)
[2018-10-27 08:11] LABS: C REACTIVE PROTEIN QUANTITATIV 15.7 MG/DL (0.00-0.30); CREATININE FOR GFR 1.32 MG/DL (0.70-1.30); GLOMERULAR FILTRATION RATE 54.5 (>35); MAGNESIUM LEVEL 2.4 MG/DL (1.8-2.4); POTASSIUM SERUM 3.3 MEQ/L (3.5-5.1)
[2018-10-27] MEDS: BRINZOLAMIDE 1 % OPHTH SUSP (AZOPT) 10ML OD SCH ×2 (09:00→20:42)
[2018-10-27] MEDS: SENOKOT S TAB PO SCH ×3 (09:00→20:42)
[2018-10-27] MEDS: POTASSIUM CHLORIDE 10 MEQ SR TABLET PO SCH ×3 (09:00→20:38)
[2018-10-27] MEDS: MULTIVITAMINS/MINERALS THERAP 1 TAB PO SCH ×2 (09:00→09:24)
[2018-10-27] MEDS: BRIMONIDINE 0.1% OPHTH SOLN 5 ML OU SCH (09:25)
[2018-10-27] MEDS ORDERED: AMPICILLIN SOD 1 GM in D5W MINI-BAG PLUS 50 ML IV SCH (16:00)
[2018-10-27] MEDS: NS 0.45% 1,000 ML IV SCH ×2 (17:28→21:30)
[2018-10-27] MEDS: POTASSIUM CHLORIDE 10 MEQ SR TABLET PO ONE ×2 (17:45→18:17)
--- NOTE | 2018-10-27 17:50 | IPNPDOC ---
Text Note Date of Service The patient was seen on 10/27/18. NOTE SUBJECTIVE: The patient is seen and examined in the room. Patient still has confusion. Ativan was given to patient yesterday and patient was able to calm down. Staff was able to re-establish the IV line. No fever or chill. Denies cough or sputum production. OBJECTIVE: VITAL SIGNS: Listed below. GENERAL: Alert and awake. Patient is agitated. HEENT: Normocephalic, atraumatic. CARDIOVASCULAR: Positive S1, S2, tachycardic LUNGS: Clear to auscultation bilaterally. ABDOMEN: Soft, nontender. EXTREMITIES: No edema. LABORATORY DATA: Listed below. ASSESSMENT AND PLAN: # Metabolic encephalopathy. - Discussed with patient's sister (Ms. Gonzales) to obtain patient's mentation baseline. - Patient has elevated WBC and worsening CRP. This is suspicion that acute infectious process may be the reason for altered mental status. - Patient has chronic johnson. Urine culture is positive for pseudomonas. - Patient has history of frequent aspiration PNA. Portable CXR demonstrate PNA at right upper lobe. - IV Meropenem. - Ativan PRN for agitation. # Aspiration PNA - Right upper lobe infiltrate on CXR 10/26/18. Elevated WBC. - On honey thicken Pureed diet. On meropenem. # UTI due to chronic johnson - Urine culture is positive for pseudomonas. On meropenem. #. Left hip pain status post mechanical fall. - CT of the left hip showed no fracture. - Patient refused PO medication. On IV morphine for pain control. # Acute kidney injury - Patient has acute metal status change. Patient has refused most oral medications. Per report, patient also had poor oral intake. - On IV fluid support. Diuretic is on hold. #. Diastolic dysfunction. - Due to FERNANDA from poor oral intake. Torsemide is on hold. We will continue to monitor the patient's fluid status. Currently, no sign of fluid overload. #. Hypertension. Blood pressure in the satisfactory range. #. Thrombocytopenia. Continue to monitor. No significant changes in the last 24 hours. No sign of bleeding. #. Glaucoma. Continue eye drops. #. Deep vein thrombosis (DVT) prophylaxis, on thromboembolic-deterrent stockings /TEDS compression. The patient has thrombocytopenia. VS,Fishbone, I+O VS, Fishbone, I+O Laboratory Tests 10/27/18 07:15 Red Blood Count 3.95 L, Mean Corpuscular Volume 93.2, Mean Corpuscular Hemoglobin 30.4, Mean Corpuscular Hemoglobin Concent 32.6, Red Cell Distribution Width 14.9 H, Calcium Level 8.0 L Vital Signs Date Time Temp Pulse Resp B/P (MAP) Pulse Ox O2 Delivery O2 Flow Rate FiO2 10/27/18 02:00 97.2 60 20 100/62 (75) 10/26/18 18:52 Room Air 10/26/18 14:00 91 I&O- Last 24 Hours up to 6 AM 10/27/18 05:59 Intake Total 1330 ml Output Total 825 ml Balance 505 ml JODI BOB DO Oct 27, 2018 17:50
[2018-10-27] MEDS: KCL 10MEQ/100ML SWI (KRUN) 10 MEQ in APPROPRIATE DILUENT 1 EA IV SCH ×5 (19:31→22:46)
[2018-10-27] MEDS: MIRTAZAPINE 15 MG TAB PO SCH (20:38)
[2018-10-28] MEDS: MEROPENEM INJ 1 GM in APPROPRIATE DILUENT 1 EA IV SCH ×2 (00:38→12:14)
[2018-10-28 02:00] VITALS: BP 110/72
[2018-10-28 05:59] LABS: HEMATOCRIT 35.5 % (42.0-52.0); HEMOGLOBIN 11.6 g/dl (13.5-17.5); MEAN CORPUSCULAR HEMOGLOBIN 30.4 pg (27.0-33.0); MEAN CORPUSCULAR HGB CONC 32.7 g/dl (32.0-36.5); MEAN CORPUSCULAR VOLUME 92.9 fl (80.0-96.0); RED BLOOD COUNT 3.82 10^6/uL (4.30-6.10); WHITE BLOOD COUNT 7.8 10^3/uL (4.0-10.0)
[2018-10-28 06:00] VITALS: BP 118/58
[2018-10-28 06:05] LABS: PLATELET COUNT, AUTOMATED 87 10^3/uL (150-450)
[2018-10-28 06:27] LABS: CALCIUM LEVEL 8.2 MG/DL (8.8-10.2); CREATININE FOR GFR 1.28 MG/DL (0.70-1.30); GLOMERULAR FILTRATION RATE 56.5 (>35); MAGNESIUM LEVEL 2.5 MG/DL (1.8-2.4); POTASSIUM SERUM 3.5 MEQ/L (3.5-5.1)
[2018-10-28] MEDS: D5W 1,000 ML IV SCH ×2 (07:34→22:26)
[2018-10-28] MEDS: BRINZOLAMIDE 1 % OPHTH SUSP (AZOPT) 10ML OD SCH ×2 (09:00→22:17)
[2018-10-28] MEDS: SENOKOT S TAB PO SCH ×2 (09:00→22:17)
[2018-10-28] MEDS: MULTIVITAMINS/MINERALS THERAP 1 TAB PO SCH (09:00)
[2018-10-28] MEDS: POTASSIUM CHLORIDE 10 MEQ SR TABLET PO SCH ×2 (09:00→22:26)
[2018-10-28] MEDS: BRIMONIDINE 0.1% OPHTH SOLN 5 ML OU SCH (09:00)
[2018-10-28 10:00] VITALS: BP 101/60
[2018-10-28 14:00] VITALS: BP 129/63
--- NOTE | 2018-10-28 14:34 | IPNPDOC ---
Text Note Date of Service The patient was seen on 10/28/18. NOTE SUBJECTIVE: The patient is seen and examined in the room. Patient remains confused. Per staff, patient is not agitated and aggressive toward staffs. Patient continues refusing oral intakes including medications and meals. No fever or chill. OBJECTIVE: VITAL SIGNS: Listed below. GENERAL: Alert and awake. Confused. HEENT: Normocephalic, atraumatic. CARDIOVASCULAR: Positive S1, S2, tachycardic LUNGS: Clear to auscultation bilaterally. ABDOMEN: Soft, nontender. EXTREMITIES: No edema. LABORATORY DATA: Listed below. ASSESSMENT AND PLAN: # Metabolic encephalopathy. - Discussed with patient's sister (Ms. Gonzales) to obtain patient's mentation baseline. - This is suspicion that acute infectious process may be the reason for altered mental status. Patient has chronic johnson. Urine culture is positive for pseudomonas and E faecalis. - Patient has history of frequent aspiration PNA. Portable CXR demonstrate PNA at right upper lobe. - IV Meropenem and Ampicillin. WBC and CRP are improving. - Ativan PRN for agitation. # Aspiration PNA - Right upper lobe infiltrate on CXR 10/26/18. - On honey thicken Pureed diet. On IV meropenem. # UTI due to chronic johnson - Urine culture is positive for pseudomonas. E Faecalis is positive in urine culture in the last 24 hours. Restart Ampicillin. On meropenem. #. Left hip pain status post mechanical fall. - CT of the left hip showed no fracture. - Patient refused PO medication. On IV morphine for pain control. # Acute kidney injury - Patient has refused oral intake including medications and meals. - On IV fluid support. Diuretic is on hold. # Hypernatremia - Adjust IV fluid according. #. Diastolic dysfunction. - Due to FERNANDA from poor oral intake. Torsemide is on hold. We will continue to monitor the patient's fluid status. Currently, no sign of fluid overload. #. Hypertension. Blood pressure in the satisfactory range. #. Thrombocytopenia. Continue to monitor. No significant changes in the last 24 hours. No sign of bleeding. #. Glaucoma. Continue eye drops. #. Deep vein thrombosis (DVT) prophylaxis, on thromboembolic-deterrent stockings /TEDS compression. The patient has thrombocytopenia. VS,Fishbone, I+O VS, Fishbone, I+O Laboratory Tests 10/28/18 05:36 Red Blood Count 3.82 L, Mean Corpuscular Volume 92.9, Mean Corpuscular Hemoglobin 30.4, Mean Corpuscular Hemoglobin Concent 32.7, Red Cell Distribution Width 14.9 H, Calcium Level 8.2 L Vital Signs Date Time Temp Pulse Resp B/P (MAP) Pulse Ox O2 Delivery O2 Flow Rate FiO2 10/28/18 10:00 97.6 87 18 101/60 (74) 94 Room Air I&O- Last 24 Hours up to 6 AM 10/28/18 06:00 Intake Total 1794 ml Output Total 1560 ml Balance 234 ml JODI BOB DO Oct 28, 2018 14:34
[2018-10-28] MEDS: AMPICILLIN SOD 1 GM in D5W 50 ML IV SCH ×2 (16:06→22:17)
[2018-10-28 18:00] VITALS: BP 124/71
[2018-10-28 22:00] VITALS: BP 110/57
[2018-10-28] MEDS: MIRTAZAPINE 15 MG TAB PO SCH (22:17)
[2018-10-28] MEDS ORDERED: TORSEMIDE 20 MG TAB PO ONE (23:15)
[2018-10-29] MEDS: MEROPENEM INJ 1 GM in APPROPRIATE DILUENT 1 EA IV SCH ×2 (01:10→12:38)
[2018-10-29 02:00] VITALS: BP 100/56
[2018-10-29] MEDS: AMPICILLIN SOD 1 GM in D5W 50 ML IV SCH ×4 (04:24→21:22)
[2018-10-29 06:00] VITALS: BP 101/61
[2018-10-29 06:37] LABS: HEMATOCRIT 38.9 % (42.0-52.0); HEMOGLOBIN 12.7 g/dl (13.5-17.5); MEAN CORPUSCULAR HEMOGLOBIN 30.3 pg (27.0-33.0); MEAN CORPUSCULAR HGB CONC 32.6 g/dl (32.0-36.5); MEAN CORPUSCULAR VOLUME 92.8 fl (80.0-96.0); PLATELET COUNT, AUTOMATED 93 10^3/uL (150-450); RED BLOOD COUNT 4.19 10^6/uL (4.30-6.10); WHITE BLOOD COUNT 13.9 10^3/uL (4.0-10.0)
[2018-10-29 07:02] LABS: BLOOD UREA NITROGEN 32 MG/DL (7-18); CALCIUM LEVEL 8.5 MG/DL (8.8-10.2); CARBON DIOXIDE LEVEL 30 MEQ/L (21-32); CHLORIDE LEVEL 115 MEQ/L (98-107); CREATININE FOR GFR 1.19 MG/DL (0.70-1.30); GLOMERULAR FILTRATION RATE > 60.0 (>35); GLUCOSE, FASTING 120 MG/DL (70-100); MAGNESIUM LEVEL 2.4 MG/DL (1.8-2.4); POTASSIUM SERUM 3.5 MEQ/L (3.5-5.1); SODIUM LEVEL 151 MEQ/L (136-145)
[2018-10-29] MEDS: POTASSIUM CHLORIDE 10 MEQ SR TABLET PO SCH ×2 (07:25→21:23)
[2018-10-29] MEDS: D5W 1,000 ML IV SCH (07:25)
[2018-10-29] MEDS: MULTIVITAMINS/MINERALS THERAP 1 TAB PO SCH (07:25)
[2018-10-29] MEDS: BRIMONIDINE 0.1% OPHTH SOLN 5 ML OU SCH (07:25)
[2018-10-29] MEDS: SENOKOT S TAB PO SCH ×2 (07:29→21:23)
[2018-10-29] MEDS: BRINZOLAMIDE 1 % OPHTH SUSP (AZOPT) 10ML OD SCH ×2 (07:30→21:22)
[2018-10-29 08:18] LABS: C REACTIVE PROTEIN QUANTITATIV 9.89 MG/DL (0.00-0.30); NT-PRO BNP 14134 PG/ML (<450)
[2018-10-29 08:28] LABS: ERYTHROCYTE SEDIMENTATION RATE 40 mm/hr (0-30)
[2018-10-29] MEDS: TORSEMIDE 20 MG TAB PO SCH (09:57)
[2018-10-29 10:00] VITALS: BP 93/52
--- NOTE | 2018-10-29 11:37 | REP ---
Chest one-view HISTORY: New crackles Comparison: 10/26/2018 The density is present in the right upper and lower lobes consistent with atelectasis or infiltrate. There is blunting of the right costophrenic angle due to pleural thickening. The left lung is clear. The cardiac silhouette is enlarged. The pulmonary vasculature is normal in appearance. A cardiac pacemaker is present. Impression: 1. Right upper lower lobe atelectasis or infiltrate. 2. Cardiomegaly. Electronically Signed by Kiran Danielle MD 10/29/2018 11:29 A
[2018-10-29 14:00] VITALS: BP 105/60
--- NOTE | 2018-10-29 16:49 | IPNPDOC ---
Text Note Date of Service The patient was seen on 10/29/18. NOTE SUBJECTIVE: The patient is seen and examined in the room. Patient remains confused. No aggressive behavior is reported. No fever or chill. OBJECTIVE: VITAL SIGNS: Listed below. GENERAL: Alert and awake. Confused. HEENT: Normocephalic, atraumatic. CARDIOVASCULAR: Positive S1, S2, regular rate. LUNGS: Clear to auscultation bilaterally. ABDOMEN: Soft, nontender. EXTREMITIES: No edema. LABORATORY DATA: Listed below. ASSESSMENT AND PLAN: # Metabolic encephalopathy. - Discussed with patient's sister (Ms. Gonzales) to obtain patient's mentation baseline. - This is suspicion that acute infectious process may be the reason for altered mental status. Patient has chronic johnson. Urine culture is positive for pseudomonas and E faecalis. - Patient has history of frequent aspiration PNA. Portable CXR on 10/26/18 demonstrated PNA at right upper lobe. Portable CXR on 10/29/18 demonstrates right upper and lower lobe infiltrate. Consider swallow evaluation. - IV Meropenem and Ampicillin. WBC and CRP are improving. - Ativan PRN for agitation. # Aspiration PNA - Right upper lobe infiltrate on CXR 10/26/18. Right upper and lower lobe infiltrate/atelectasis on CXR 10/29/18. - On honey thicken Pureed diet. On IV meropenem. # UTI due to Chronic johnson. Urine culture is positive for pseudomonas. E Faecalis is positive in urine culture in the last 24 hours. On ampicillin and meropenem. #. Left hip pain status post mechanical fall. - CT of the left hip showed no fracture. - Patient refused PO medication. On IV morphine for pain control. # Acute kidney injury - Patient has refused oral intake including medications and meals. - On IV fluid support. Diuretic is on hold. # Hypernatremia - Adjust IV fluid according. #. Diastolic dysfunction. - Due to FERNANDA from poor oral intake. Torsemide is on hold. We will continue to monitor the patient's fluid status. Currently, no sign of fluid overload. #. Hypertension. Blood pressure in the satisfactory range. #. Thrombocytopenia. Continue to monitor. No significant changes in the last 24 hours. No sign of bleeding. #. Glaucoma. Continue eye drops. #. Deep vein thrombosis (DVT) prophylaxis, on thromboembolic-deterrent stockings /TEDS compression. The patient has thrombocytopenia. VS,Fishbone, I+O VS, Fishbone, I+O Laboratory Tests 10/29/18 06:20 Red Blood Count 4.19 L, Mean Corpuscular Volume 92.8, Mean Corpuscular Hemoglobin 30.3, Mean Corpuscular Hemoglobin Concent 32.6, Red Cell Distribution Width 14.9 H, Calcium Level 8.5 L Vital Signs Date Time Temp Pulse Resp B/P (MAP) Pulse Ox O2 Delivery O2 Flow Rate FiO2 10/29/18 14:00 98.3 68 20 105/60 (75) 95 Room Air I&O- Last 24 Hours up to 6 AM 10/29/18 06:00 Intake Total 3078 ml Output Total 2920 ml Balance 158 ml JODI BOB DO Oct 29, 2018 16:49
[2018-10-29] MEDS: MIRTAZAPINE 15 MG TAB PO SCH (21:23)
[2018-10-29 22:00] VITALS: BP 100/50
[2018-10-30] MEDS: MEROPENEM INJ 1 GM in APPROPRIATE DILUENT 1 EA IV SCH ×2 (00:40→12:12)
[2018-10-30] MEDS: D5W 1,000 ML IV SCH ×2 (00:40→09:29)
[2018-10-30 02:00] VITALS: BP 110/66
[2018-10-30] MEDS: AMPICILLIN SOD 1 GM in D5W 50 ML IV SCH ×4 (04:14→20:58)
[2018-10-30 06:00] VITALS: BP 102/62
[2018-10-30 06:15] LABS: HEMATOCRIT 36.8 % (42.0-52.0); HEMOGLOBIN 12.1 g/dl (13.5-17.5); MEAN CORPUSCULAR HEMOGLOBIN 30.3 pg (27.0-33.0); MEAN CORPUSCULAR HGB CONC 32.9 g/dl (32.0-36.5); MEAN CORPUSCULAR VOLUME 92.2 fl (80.0-96.0); PLATELET COUNT, AUTOMATED 104 10^3/uL (150-450); RED BLOOD COUNT 3.99 10^6/uL (4.30-6.10); WHITE BLOOD COUNT 5.9 10^3/uL (4.0-10.0)
[2018-10-30 06:33] LABS: BLOOD UREA NITROGEN 26 MG/DL (7-18); CARBON DIOXIDE LEVEL 29 MEQ/L (21-32); CHLORIDE LEVEL 114 MEQ/L (98-107); CREATININE FOR GFR 1.06 MG/DL (0.70-1.30); GLOMERULAR FILTRATION RATE > 60.0 (>35); GLUCOSE, FASTING 117 MG/DL (70-100); MAGNESIUM LEVEL 2.4 MG/DL (1.8-2.4); POTASSIUM SERUM 3.3 MEQ/L (3.5-5.1); SODIUM LEVEL 149 MEQ/L (136-145)
[2018-10-30] MEDS: BRINZOLAMIDE 1 % OPHTH SUSP (AZOPT) 10ML OD SCH ×2 (07:45→20:58)
[2018-10-30] MEDS: BRIMONIDINE 0.1% OPHTH SOLN 5 ML OU SCH (07:46)
[2018-10-30] MEDS: SENOKOT S TAB PO SCH ×2 (07:53→20:58)
[2018-10-30] MEDS: MULTIVITAMINS/MINERALS THERAP 1 TAB PO SCH (07:53)
[2018-10-30] MEDS: POTASSIUM CHLORIDE 10 MEQ SR TABLET PO SCH ×2 (07:53→20:58)
[2018-10-30 10:00] VITALS: BP 97/53
[2018-10-30] MEDS: MORPHINE 4 MG/ML 1ML VIAL/SYRINGE (J2270) IV PRN (13:23)
[2018-10-30 14:00] VITALS: BP 116/57
--- NOTE | 2018-10-30 17:30 | IPNPDOC ---
Text Note Date of Service The patient was seen on 10/30/18. NOTE SUBJECTIVE: The patient is seen and examined in the room. Patient is more awake and alert. Patient's orientation is better compared to yesterday. No aggressive behavior is reported. Denies fever or chill. Patient still has intermittent cough. OBJECTIVE: VITAL SIGNS: Listed below. GENERAL: Alert and awake. Confused. HEENT: Normocephalic, atraumatic. CARDIOVASCULAR: Positive S1, S2, regular rate. LUNGS: Positive lung crackles bilaterally. No significant wheeze is appreciated. ABDOMEN: Soft, nontender. EXTREMITIES: No edema. LABORATORY DATA: Listed below. ASSESSMENT AND PLAN: # Metabolic encephalopathy. - Discussed with patient's sister (Ms. Gonzales) to obtain patient's mentation baseline. - This is suspicion that acute infectious process may be the reason for altered mental status. Patient has chronic johnson. Urine culture is positive for pseudomonas and E faecalis. - Patient has history of frequent aspiration PNA. Portable CXR on 10/26/18 demonstrated PNA at right upper lobe. Portable CXR on 10/29/18 demonstrates right upper and lower lobe infiltrate. Swallow evaluation ordered. - IV Meropenem and Ampicillin. WBC and CRP are improving. Mentation is improving. - Ativan PRN for agitation. # Recurrent aspiration PNA - Right upper lobe infiltrate on CXR 10/26/18. Right upper and lower lobe infiltrate/atelectasis on CXR 10/29/18. - On honey thicken Pureed diet. On IV meropenem. Swallow study ordered. # UTI due to chronic johnson - Urine culture is positive for pseudomonas and E Faecalis. On ampicillin and meropenem. #. Left hip pain status post mechanical fall. - CT of the left hip showed no fracture. - Patient refused PO medication. On IV morphine for pain control. # Acute kidney injury - Patient has refused oral intake including medications and meals. - On IV fluid support. Diuretic is on hold. # Hypernatremia - Adjust IV fluid according. #. Diastolic dysfunction. - Due to FERNANDA from poor oral intake. Torsemide is on hold. We will continue to monitor the patient's fluid status. Currently, no sign of fluid overload. #. Hypertension. Blood pressure in the satisfactory range. #. Thrombocytopenia. Continue to monitor. No significant changes in the last 24 hours. No sign of bleeding. #. Glaucoma. Continue eye drops. #. Deep vein thrombosis (DVT) prophylaxis, on thromboembolic-deterrent stockings /TEDS compression. The patient has thrombocytopenia. VS,Fishbone, I+O VS, Fishbone, I+O Laboratory Tests 10/30/18 05:52 Red Blood Count 3.99 L, Mean Corpuscular Volume 92.2, Mean Corpuscular Hemoglobin 30.3, Mean Corpuscular Hemoglobin Concent 32.9, Red Cell Distribution Width 14.8 H, Calcium Level 8.0 L Vital Signs Date Time Temp Pulse Resp B/P (MAP) Pulse Ox O2 Delivery O2 Flow Rate FiO2 10/30/18 14:00 98.2 53 20 116/57 (76) 92 Room Air I&O- Last 24 Hours up to 6 AM 10/30/18 06:00 Intake Total 2020 ml Output Total 1525 ml Balance 495 ml JODI BOB DO Oct 30, 2018 17:30
[2018-10-30] MEDS: MIRTAZAPINE 15 MG TAB PO SCH (20:58)
[2018-10-30 22:00] VITALS: BP 99/56
[2018-10-31] MEDS: MEROPENEM INJ 1 GM in APPROPRIATE DILUENT 1 EA IV SCH ×2 (00:24→13:41)
[2018-10-31 02:00] VITALS: BP 110/50
[2018-10-31] MEDS: AMPICILLIN SOD 1 GM in D5W 50 ML IV SCH ×4 (03:47→22:10)
[2018-10-31 06:07] LABS: BASO % 0.4 % (0.0-1.0); EOS # 0.2 10^3/uL (0.0-0.50); EOS % 1.9 % (0.0-3.0); HEMATOCRIT 40.8 % (42.0-52.0); HEMOGLOBIN 13.1 g/dl (13.5-17.5); LYMPH # 1.3 10^3/uL (1.5-4.5); LYMPH % 13.7 % (24.0-44.0); MEAN CORPUSCULAR HEMOGLOBIN 30.1 pg (27.0-33.0); MEAN CORPUSCULAR HGB CONC 32.1 g/dl (32.0-36.5); MEAN CORPUSCULAR VOLUME 93.8 fl (80.0-96.0); MONO # 0.9 10^3/uL (0.0-0.8); MONO % 9.1 % (0.0-5.0); NEUTROPHILS # 7.3 10^3/uL (1.8-7.7); NEUTROPHILS % 74.5 % (36.0-66.0); PLATELET COUNT, AUTOMATED 106 10^3/uL (150-450); RED BLOOD COUNT 4.35 10^6/uL (4.30-6.10); WHITE BLOOD COUNT 9.8 10^3/uL (4.0-10.0)
[2018-10-31 06:37] LABS: BLOOD UREA NITROGEN 25 MG/DL (7-18); CALCIUM LEVEL 8.3 MG/DL (8.8-10.2); CARBON DIOXIDE LEVEL 28 MEQ/L (21-32); CHLORIDE LEVEL 112 MEQ/L (98-107); CREATININE FOR GFR 1.08 MG/DL (0.70-1.30); GLOMERULAR FILTRATION RATE > 60.0 (>35); GLUCOSE, FASTING 115 MG/DL (70-100); MAGNESIUM LEVEL 2.3 MG/DL (1.8-2.4); POTASSIUM SERUM 3.6 MEQ/L (3.5-5.1); SODIUM LEVEL 146 MEQ/L (136-145)
[2018-10-31] MEDS: MULTIVITAMINS/MINERALS THERAP 1 TAB PO SCH (09:48)
[2018-10-31] MEDS: SENOKOT S TAB PO SCH ×2 (09:48→22:10)
[2018-10-31] MEDS: D5W 1,000 ML IV SCH (09:48)
[2018-10-31] MEDS: BRINZOLAMIDE 1 % OPHTH SUSP (AZOPT) 10ML OD SCH ×2 (09:50→21:00)
[2018-10-31] MEDS: BRIMONIDINE 0.1% OPHTH SOLN 5 ML OU SCH ×2 (09:50→22:16)
[2018-10-31] MEDS: POTASSIUM CHLORIDE 10 MEQ SR TABLET PO SCH ×2 (09:50→21:00)
[2018-10-31 12:00] VITALS: BP 94/50
[2018-10-31] MEDS ORDERED: VARIBAR NECTAR 40% w/v 240ML SUSP BTL As Ordered ONE (12:52)
[2018-10-31] MEDS ORDERED: VARIBAR PUDDING 40% w/v 230ML TUBE As Ordered ONE (12:52)
[2018-10-31] MEDS ORDERED: E-Z-PAQUE 96% w/w SUSP 176GM BTL As Ordered ONE (12:52)
[2018-10-31 14:00] VITALS: BP 110/59
--- NOTE | 2018-10-31 15:25 | NUR ---
Pt seen for modified barium swallow study to r/o aspiration and determine safest diet consistency. Pt presents with moderate pharyngeal phase dysphagia characterized by pooling in the valleculae. Recommend: Puree solids (must be smooth and creamy) and nectar thick liquids. Thorough oral care 3x a day. Encourage Pt to alternate solids and liquids frequently throughout intake. Addendum: 10/31/18 at 1528 by HAMIDA [facility] Amended: Links added.
--- NOTE | 2018-10-31 15:43 | IPNPDOC ---
Text Note Date of Service The patient was seen on 10/31/18. NOTE SUBJECTIVE: The patient is seen and examined in the room. Patient continues having intermittent coughs. Denies fever or chill. No agitation or aggressive Patient is more awake and alert. Patient's orientation is better compared to yesterday. No aggressive behavior is reported. OBJECTIVE: VITAL SIGNS: Listed below. GENERAL: Alert and awake. Confused. HEENT: Normocephalic, atraumatic. CARDIOVASCULAR: Positive S1, S2, regular rate. LUNGS: Positive lung crackles bilaterally. No significant wheeze is appreciated. ABDOMEN: Soft, nontender. EXTREMITIES: No edema. LABORATORY DATA: Listed below. ASSESSMENT AND PLAN: # Metabolic encephalopathy. - Possibly secondary to UTI and aspiration PNA. - Patient has chronic johnson. Urine culture is positive for pseudomonas and E ca calis. - Patient has history of frequent aspiration PNA. Portable CXR on 10/26/18 demonstrated PNA at right upper lobe. Portable CXR on 10/29/18 demonstrates right upper and lower lobe infiltrate. Swallow evaluation ordered. - IV Meropenem and Ampicillin. WBC and CRP are improving. Mentation is impro ving. - Ativan PRN for agitation. # Recurrent aspiration PNA - Right upper lobe infiltrate on CXR 10/26/18. Right upper and lower lobe infiltrate/atelectasis on CXR 10/29/18. - On honey thicken Pureed diet. On IV meropenem. Swallow study ordered. # UTI due to chronic johnson - Urine culture is positive for pseudomonas and E Faecalis. On ampicillin and meropenem. #. Left hip pain status post mechanical fall. - CT of the left hip showed no fracture. - Patient refused PO medication. On IV morphine for pain control. # Acute kidney injury - Patient has poor oral intake. - On IV fluid support. Diuretic is on hold. # Hypernatremia - Adjust IV fluid according. #. Diastolic dysfunction. - Due to FERNANDA from poor oral intake. Torsemide is on hold. We will continue to monitor the patient's fluid status. Currently, no sign of fluid overload. #. Hypertension. Blood pressure in the satisfactory range. #. Thrombocytopenia. Continue to monitor. No significant changes in the last 24 hours. No sign of bleeding. #. Glaucoma. Continue eye drops. #. Deep vein thrombosis (DVT) prophylaxis, on thromboembolic-deterrent stockings /TEDS compression. The patient has thrombocytopenia. VS,Fishbone, I+O VS, Fishbone, I+O Laboratory Tests 10/31/18 05:46 Red Blood Count 4.35, Mean Corpuscular Volume 93.8, Mean Corpuscular Hemoglobin 30.1, Mean Corpuscular Hemoglobin Concent 32.1, Red Cell Distribution Width 14.9 H, Neutrophils (%) (Auto) 74.5 H, Lymphocytes (%) (Auto) 13.7 L, Monocytes (%) (Auto) 9.1 H, Eosinophils (%) (Auto) 1.9, Basophils (%) (Auto) 0.4, Neutrophils # (Auto) 7.3, Lymphocytes # (Auto) 1.3 L, Monocytes # (Auto) 0.9 H, Eosinophils # (Auto) 0.2, Basophils # (Auto) 0.0, Calcium Level 8.3 L Vital Signs Date Time Temp Pulse Resp B/P (MAP) Pulse Ox O2 Delivery O2 Flow Rate FiO2 10/31/18 14:00 98.7 51 24 110/59 (76) 91 Room Air I&O- Last 24 Hours up to 6 AM 10/31/18 06:00 Intake Total 1700 ml Output Total 1750 ml Balance -50 ml JODI BOB DO Oct 31, 2018 15:43
[2018-10-31 18:00] VITALS: BP 102/62
--- NOTE | 2018-10-31 19:24 | REP ---
COOKIE SWALLOW The procedure was performed under the direct supervision of Dr. Martin. The procedure was performed with Dalia Quinteros from speech pathology present. 5 ml aliquots of honey, nectar and pudding consistency barium was administered. There is no evidence of penetration or aspiration. The detailed report of this examination will be provided by speech pathology. 1.2 minutes of fluoroscopy time was utilized for this procedure. Reviewed by JESSE Alba 10/31/2018 03:48 P Electronically Signed by Tres Martin MD 10/31/2018 07:15 P
[2018-10-31 22:00] VITALS: BP 99/67
[2018-10-31] MEDS: MIRTAZAPINE 15 MG TAB PO SCH (22:10)
[2018-11-01] MEDS: MEROPENEM INJ 1 GM in APPROPRIATE DILUENT 1 EA IV SCH ×2 (00:59→12:21)
[2018-11-01 02:00] VITALS: BP 101/55
[2018-11-01] MEDS: AMPICILLIN SOD 1 GM in D5W 50 ML IV SCH ×4 (04:33→21:59)
[2018-11-01] MEDS: D5W 1,000 ML IV SCH (04:37)
[2018-11-01 06:00] VITALS: BP 100/60
[2018-11-01 06:03] LABS: HEMATOCRIT 35.4 % (42.0-52.0); HEMOGLOBIN 11.7 g/dl (13.5-17.5); MEAN CORPUSCULAR HEMOGLOBIN 30.2 pg (27.0-33.0); MEAN CORPUSCULAR HGB CONC 33.1 g/dl (32.0-36.5); MEAN CORPUSCULAR VOLUME 91.2 fl (80.0-96.0); PLATELET COUNT, AUTOMATED 121 10^3/uL (150-450); RED BLOOD COUNT 3.88 10^6/uL (4.30-6.10); WHITE BLOOD COUNT 5.7 10^3/uL (4.0-10.0)
[2018-11-01 06:33] LABS: BLOOD UREA NITROGEN 23 MG/DL (7-18); CARBON DIOXIDE LEVEL 28 MEQ/L (21-32); CHLORIDE LEVEL 112 MEQ/L (98-107); CREATININE FOR GFR 1.06 MG/DL (0.70-1.30); GLOMERULAR FILTRATION RATE > 60.0 (>35); GLUCOSE, FASTING 112 MG/DL (70-100); MAGNESIUM LEVEL 2.3 MG/DL (1.8-2.4); POTASSIUM SERUM 3.8 MEQ/L (3.5-5.1); SODIUM LEVEL 147 MEQ/L (136-145)
[2018-11-01] MEDS: SENOKOT S TAB PO SCH ×2 (09:43→21:59)
[2018-11-01] MEDS: POTASSIUM CHLORIDE 10 MEQ SR TABLET PO SCH ×2 (09:43→22:00)
[2018-11-01] MEDS: MULTIVITAMINS/MINERALS THERAP 1 TAB PO SCH (09:43)
[2018-11-01] MEDS: MORPHINE 4 MG/ML 1ML VIAL/SYRINGE (J2270) IV PRN ×2 (09:44→10:05)
[2018-11-01] MEDS: BRINZOLAMIDE 1 % OPHTH SUSP (AZOPT) 10ML OD SCH ×2 (09:44→22:00)
[2018-11-01 10:00] VITALS: BP 108/56
[2018-11-01] MEDS ORDERED: PERCOCET 5MG/325MG TAB PO ONE (11:30)
--- NOTE | 2018-11-01 13:02 | IPNPDOC ---
Subjective Date Seen The patient was seen on 11/01/18. Subjective Chief Complaint/HPI Patient seen and examined at the bedside. Speech therapy evaluation from yesterday noted. The patient's diet has been adjusted. PFS on board for likely need for placement. Objective Physical Examination General Exam: Positive: Alert, Cooperative, No Acute Distress ENT Exam: Positive: Atraumatic, Mucous membr. moist/pink Neck Exam: Negative: JVD Chest Exam: Positive: Clear to auscultation, Normal air movement Heart Exam: Positive: Rate Normal, Normal S1, Normal S2 Abdomen Exam: Positive: Soft; Negative: Tenderness Extremity Exam: Positive: Other (Patient with mild tenderness to palpation on the medial aspect of the left thigh area. No tenderness on palpation of hip joint. ROM intact on hip flexion.); Negative: Swelling Assessment /Plan Plan/VTE VTE Prophylaxis Ordered?: Yes Plan Metabolic Encephalopathy 2/2 Aspiration PNA, improving Mentation improved following Abx administration We will cont top monitor Recurrent Aspiration Speech therapy input noted Urinary Tract Infection Urine culture positive for pseudomonas, E. Faecalis Cont Ampicillin, Meropenem Hypernatremia 2/2 Decreased PO Intake PO Intake encouraged Cont IVF hydration Left hip pain 2/[address] of the left hip negative for fracture Fall precautions PT on board Pain control as ordered We will cont to monitor Diastolic CHF, compensated We will resume Torsemide HTN Cont meds as ordered BPH. Continue Sanchez Osteoarthritis Tylenol when necessary Glaucoma continue home meds Thrombocytopenia No clear etiology at this time No indication for transfusion at this time We will cont to monitor DVT prophylaxis SCDs/TEDs (No AC 2/2 Thrombocytopenia) Dispo--Patient likely will need placement, PFS on board. VS, I&O, 24H, Dustin Vital Signs/I&O Vital Signs Date Time Temp Pulse Resp B/P (MAP) Pulse Ox O2 Delivery O2 Flow Rate FiO2 11/01/18 12:22 16 Room Air 11/01/18 06:00 97.1 60 100/60 (73) 94 I&O- Last 24 Hours up to 6 AM 11/01/18 06:00 Intake Total 1920 ml Output Total 625 ml Balance 1295 ml Laboratory Data 24H LABS Laboratory Tests 2 11/01/18 05:47: Nucleated Red Blood Cells % (auto) 0.0, Anion Gap 7L, Glomerular Filtration Rate > 60.0, Blood Urea Nitrogen 23H, Creatinine 1.06, Sodium Level 147H, Potassium Level 3.8, Chloride Level 112H, Carbon Dioxide Level 28, Calcium Level 8.0L, Magnesium Level 2.3 CBC/BMP Laboratory Tests 11/01/18 05:47 Red Blood Count 3.88 L, Mean Corpuscular Volume 91.2, Mean Corpuscular Hemoglobin 30.2, Mean Corpuscular Hemoglobin Concent 33.1, Red Cell Distribution Width 15.0 H, Calcium Level 8.0 L Microbiology Microbiology 10/26/18 Blood Culture - Final, Complete NO GROWTH AFTER 5 DAYS 10/26/18 Blood Culture - Final, Complete NO GROWTH AFTER 5 DAYS 10/25/18 Urine Culture - Final, Complete Pseudomonas Aeruginosa Enterococcus Faecalis KWADWO KILPATRICK MD Nov 01, 2018 13:02
[2018-11-01 14:00] VITALS: BP 114/65
[2018-11-01 18:00] VITALS: BP 105/77
[2018-11-01] MEDS: LACTOBACILLUS ACIDOPHILUS CAP (BACID) PO SCH (18:05)
[2018-11-01] MEDS: MIRTAZAPINE 15 MG TAB PO SCH (21:59)
[2018-11-01 22:00] VITALS: BP 100/58
[2018-11-02] VITALS (7 sets, daily range): BP systolic 93–128; BP diastolic 52–64
[2018-11-02] MEDS: MEROPENEM INJ 1 GM in APPROPRIATE DILUENT 1 EA IV SCH ×2 (01:36→13:41)
[2018-11-02] MEDS: D5W 1,000 ML IV SCH (01:51)
[2018-11-02] MEDS: AMPICILLIN SOD 1 GM in D5W 50 ML IV SCH ×2 (04:20→09:10)
[2018-11-02] MEDS: BRINZOLAMIDE 1 % OPHTH SUSP (AZOPT) 10ML OD SCH ×2 (09:10→22:16)
[2018-11-02] MEDS: BRIMONIDINE 0.1% OPHTH SOLN 5 ML OU SCH (09:10)
[2018-11-02] MEDS: MULTIVITAMINS/MINERALS THERAP 1 TAB PO SCH (09:10)
[2018-11-02] MEDS: POTASSIUM CHLORIDE 10 MEQ SR TABLET PO SCH ×2 (09:10→22:16)
[2018-11-02] MEDS: LACTOBACILLUS ACIDOPHILUS CAP (BACID) PO SCH ×2 (09:10→17:34)
[2018-11-02] MEDS: SENOKOT S TAB PO SCH ×2 (09:10→22:16)
[2018-11-02 09:23] LABS: HEMATOCRIT 39.4 % (42.0-52.0); HEMOGLOBIN 12.5 g/dl (13.5-17.5); MEAN CORPUSCULAR HEMOGLOBIN 29.5 pg (27.0-33.0); MEAN CORPUSCULAR HGB CONC 31.7 g/dl (32.0-36.5); MEAN CORPUSCULAR VOLUME 92.9 fl (80.0-96.0); PLATELET COUNT, AUTOMATED 161 10^3/uL (150-450); RED BLOOD COUNT 4.24 10^6/uL (4.30-6.10); WHITE BLOOD COUNT 6.4 10^3/uL (4.0-10.0)
[2018-11-02 09:45] LABS: BLOOD UREA NITROGEN 23 MG/DL (7-18); CALCIUM LEVEL 8.7 MG/DL (8.8-10.2); CARBON DIOXIDE LEVEL 28 MEQ/L (21-32); CHLORIDE LEVEL 108 MEQ/L (98-107); CREATININE FOR GFR 1.09 MG/DL (0.70-1.30); GLOMERULAR FILTRATION RATE > 60.0 (>35); GLUCOSE, FASTING 129 MG/DL (70-100); SODIUM LEVEL 142 MEQ/L (136-145)
--- NOTE | 2018-11-02 12:45 | IPNPDOC ---
Subjective Date Seen The patient was seen on 11/02/18. Subjective Chief Complaint/HPI Patient seen and examined at the bedside. No acute overnight events noted. Objective Physical Examination General Exam: Positive: Alert, Cooperative, No Acute Distress ENT Exam: Positive: Atraumatic, Mucous membr. moist/pink Neck Exam: Negative: JVD Chest Exam: Positive: Clear to auscultation, Normal air movement Heart Exam: Positive: Rate Normal, Normal S1, Normal S2 Abdomen Exam: Positive: Soft; Negative: Tenderness Extremity Exam: Positive: Other (Patient with mild tenderness to palpation on the medial aspect of the left thigh area. No tenderness on palpation of hip joint. ROM intact on hip flexion.); Negative: Swelling Assessment /Plan Plan/VTE VTE Prophylaxis Ordered?: Yes Plan Metabolic Encephalopathy 2/2 Aspiration PNA, improving Mentation improved following Abx administration We will cont top monitor Recurrent Aspiration Speech therapy input noted Urinary Tract Infection Urine culture positive for pseudomonas, E. Faecalis Cont Ampicillin, Meropenem Hypernatremia 2/2 Decreased PO Intake, improved PO Intake encouraged Left hip pain 2/[address] of the left hip negative for fracture Fall precautions PT on board Pain control as ordered We will cont to monitor Diastolic CHF, compensated We will resume Torsemide HTN Cont meds as ordered BPH. Continue Sanchez Osteoarthritis Tylenol when necessary Glaucoma continue home meds Thrombocytopenia No clear etiology at this time No indication for transfusion at this time We will cont to monitor DVT prophylaxis SCDs/TEDs (No AC 2/2 Thrombocytopenia) Dispo--Patient likely will need placement, PFS on board. VS, I&O, 24H, Fishbone Vital Signs/I&O Vital Signs Date Time Temp Pulse Resp B/P (MAP) Pulse Ox O2 Delivery O2 Flow Rate FiO2 11/02/18 10:30 98.0 54 18 118/56 (76) 94 Room Air I&O- Last 24 Hours up to 6 AM 11/02/18 06:00 Intake Total 1670 ml Output Total 600 ml Balance 1070 ml Laboratory Data 24H LABS Laboratory Tests 2 11/02/18 09:06: Nucleated Red Blood Cells % (auto) 0.0, Anion Gap 6L, Glomerular Filtration Rate > 60.0, Blood Urea Nitrogen 23H, Creatinine 1.09, Sodium Level 142, Potassium Level 4.0, Chloride Level 108H, Carbon Dioxide Level 28, Calcium Level 8.7L CBC/BMP Laboratory Tests 11/02/18 09:06 Red Blood Count 4.24 L, Mean Corpuscular Volume 92.9, Mean Corpuscular Hemoglobin 29.5, Mean Corpuscular Hemoglobin Concent 31.7 L, Red Cell Distribution Width 15.0 H, Calcium Level 8.7 L Microbiology Microbiology 10/26/18 Blood Culture - Final, Complete NO GROWTH AFTER 5 DAYS 10/26/18 Blood Culture - Final, Complete NO GROWTH AFTER 5 DAYS 10/25/18 Urine Culture - Final, Complete Pseudomonas Aeruginosa Enterococcus Faecalis KWADWO KILPATRICK MD Nov 02, 2018 12:45
[2018-11-02] MEDS: ACETAMINOPHEN TAB 650MG DOSE (2X325MG) PO PRN (14:26)
[2018-11-02] MEDS: MIRTAZAPINE 15 MG TAB PO SCH (22:16)
[2018-11-03 02:00] VITALS: BP 102/56
[2018-11-03 06:00] VITALS: BP 113/62
[2018-11-03 06:21] LABS: HEMATOCRIT 38.1 % (42.0-52.0); HEMOGLOBIN 12.1 g/dl (13.5-17.5); MEAN CORPUSCULAR HEMOGLOBIN 29.7 pg (27.0-33.0); MEAN CORPUSCULAR HGB CONC 31.8 g/dl (32.0-36.5); MEAN CORPUSCULAR VOLUME 93.4 fl (80.0-96.0); PLATELET COUNT, AUTOMATED 177 10^3/uL (150-450); RED BLOOD COUNT 4.08 10^6/uL (4.30-6.10); WHITE BLOOD COUNT 8.8 10^3/uL (4.0-10.0)
[2018-11-03 06:24] LABS: CALCIUM LEVEL 8.4 MG/DL (8.8-10.2); CREATININE FOR GFR 1.28 MG/DL (0.70-1.30); GLOMERULAR FILTRATION RATE 56.5 (>35); POTASSIUM SERUM 4.7 MEQ/L (3.5-5.1)
[2018-11-03] MEDS: MULTIVITAMINS/MINERALS THERAP 1 TAB PO SCH (09:16)
[2018-11-03] MEDS: LACTOBACILLUS ACIDOPHILUS CAP (BACID) PO SCH ×2 (09:16→17:19)
[2018-11-03] MEDS: POTASSIUM CHLORIDE 10 MEQ SR TABLET PO SCH ×2 (09:16→21:21)
[2018-11-03] MEDS: SENOKOT S TAB PO SCH ×2 (09:16→21:22)
[2018-11-03] MEDS: BRINZOLAMIDE 1 % OPHTH SUSP (AZOPT) 10ML OD SCH ×2 (09:17→21:22)
[2018-11-03] MEDS: BRIMONIDINE 0.1% OPHTH SOLN 5 ML OU SCH (09:17)
[2018-11-03] MEDS: MORPHINE 4 MG/ML 1ML VIAL/SYRINGE (J2270) IV PRN (09:41)
[2018-11-03 10:00] VITALS: BP 122/59
[2018-11-03] MEDS: ACETAMINOPHEN TAB 650MG DOSE (2X325MG) PO PRN (11:41)
--- NOTE | 2018-11-03 12:20 | IPNPDOC ---
Subjective Date Seen The patient was seen on 11/03/18. Subjective Chief Complaint/HPI Patient seen and examined at the bedside. No acute overnight events noted. Objective Physical Examination General Exam: Positive: Alert, Cooperative, No Acute Distress ENT Exam: Positive: Atraumatic, Mucous membr. moist/pink Neck Exam: Negative: JVD Chest Exam: Positive: Clear to auscultation, Normal air movement Heart Exam: Positive: Rate Normal, Normal S1, Normal S2 Abdomen Exam: Positive: Soft; Negative: Tenderness Extremity Exam: Positive: Other (Patient with mild tenderness to palpation on the medial aspect of the left thigh area. No tenderness on palpation of hip joint. ROM intact on hip flexion.); Negative: Swelling Assessment /Plan Plan/VTE VTE Prophylaxis Ordered?: Yes Plan Metabolic Encephalopathy 2/2 Aspiration PNA, improving Mentation improved following Abx administration We will cont top monitor Recurrent Aspiration Speech therapy input noted Urinary Tract Infection Urine culture positive for pseudomonas, E. Faecalis s/p trial of Ampicillin, Meropenem Hypernatremia 2/2 Decreased PO Intake, improved PO Intake encouraged Left hip pain 2/[address] of the left hip negative for fracture Fall precautions PT on board Pain control as ordered We will cont to monitor Diastolic CHF, compensated HTN Cont meds as ordered BPH. Continue Sanchez Osteoarthritis Tylenol when necessary Glaucoma continue home meds Thrombocytopenia No clear etiology at this time No indication for transfusion at this time We will cont to monitor DVT prophylaxis SCDs/TEDs (No AC 2/2 Thrombocytopenia) Dispo--Patient likely will need placement, PFS on board. VS, I&O, 24H, Fishbone Vital Signs/I&O Vital Signs Date Time Temp Pulse Resp B/P (MAP) Pulse Ox O2 Delivery O2 Flow Rate FiO2 11/03/18 10:00 97.9 83 19 122/59 (80) 94 Room Air I&O- Last 24 Hours up to 6 AM 11/03/18 06:00 Intake Total 190 ml Output Total 725 ml Balance -535 ml Laboratory Data 24H LABS Laboratory Tests 2 11/03/18 05:47: Nucleated Red Blood Cells % (auto) 0.0, Anion Gap 4L, Glomerular Filtration Rate 56.5, Blood Urea Nitrogen 24H, Creatinine 1.28, Sodium Level 145, Potassium Level 4.7, Chloride Level 112H, Carbon Dioxide Level 29, Calcium Level 8.4L CBC/BMP Laboratory Tests 11/03/18 05:47 Red Blood Count 4.08 L, Mean Corpuscular Volume 93.4, Mean Corpuscular Hemoglobin 29.7, Mean Corpuscular Hemoglobin Concent 31.8 L, Red Cell Distribution Width 15.1 H, Calcium Level 8.4 L Microbiology Microbiology 10/26/18 Blood Culture - Final, Complete NO GROWTH AFTER 5 DAYS 10/26/18 Blood Culture - Final, Complete NO GROWTH AFTER 5 DAYS 10/25/18 Urine Culture - Final, Complete Pseudomonas Aeruginosa Enterococcus Faecalis KWADWO KILPATRICK MD Nov 03, 2018 12:20
[2018-11-03 13:53] VITALS: BP 112/51
[2018-11-03 18:00] VITALS: BP 100/66
[2018-11-03] MEDS: MIRTAZAPINE 15 MG TAB PO SCH (21:21)
[2018-11-03 22:00] VITALS: BP 141/61
[2018-11-04 02:00] VITALS: BP 121/62
[2018-11-04 06:00] VITALS: BP_SYST 121; BP_SYST 122; BP_DIAS 64; BP_DIAS 65
[2018-11-04 06:23] LABS: HEMATOCRIT 38.7 % (42.0-52.0); HEMOGLOBIN 12.6 g/dl (13.5-17.5); MEAN CORPUSCULAR HEMOGLOBIN 30.1 pg (27.0-33.0); MEAN CORPUSCULAR HGB CONC 32.6 g/dl (32.0-36.5); MEAN CORPUSCULAR VOLUME 92.6 fl (80.0-96.0); PLATELET COUNT, AUTOMATED 218 10^3/uL (150-450); RED BLOOD COUNT 4.18 10^6/uL (4.30-6.10); WHITE BLOOD COUNT 5.2 10^3/uL (4.0-10.0)
[2018-11-04 06:50] LABS: BLOOD UREA NITROGEN 21 MG/DL (7-18); CALCIUM LEVEL 8.6 MG/DL (8.8-10.2); CARBON DIOXIDE LEVEL 30 MEQ/L (21-32); CHLORIDE LEVEL 115 MEQ/L (98-107); CREATININE FOR GFR 1.11 MG/DL (0.70-1.30); GLOMERULAR FILTRATION RATE > 60.0 (>35); GLUCOSE, FASTING 98 MG/DL (70-100); POTASSIUM SERUM 5.2 MEQ/L (3.5-5.1); SODIUM LEVEL 149 MEQ/L (136-145)
[2018-11-04] MEDS: BRIMONIDINE 0.1% OPHTH SOLN 5 ML OU SCH (08:09)
[2018-11-04] MEDS: MULTIVITAMINS/MINERALS THERAP 1 TAB PO SCH (08:09)
[2018-11-04] MEDS: LACTOBACILLUS ACIDOPHILUS CAP (BACID) PO SCH ×2 (08:09→17:59)
[2018-11-04] MEDS: BRINZOLAMIDE 1 % OPHTH SUSP (AZOPT) 10ML OD SCH ×2 (08:09→20:17)
[2018-11-04] MEDS: SENOKOT S TAB PO SCH ×2 (08:09→20:17)
[2018-11-04] MEDS: D5W 1,500 ML IV SCH ×2 (08:18→22:31)
[2018-11-04 10:00] VITALS: BP 113/65
[2018-11-04 14:00] VITALS: BP 129/67
--- NOTE | 2018-11-04 14:42 | IPNPDOC ---
Subjective Date Seen The patient was seen on 11/04/18. Subjective Chief Complaint/HPI Patient seen and examined at the bedside. He continues not to take in enough by mouth diet/hydration, and consequently his serum sodium level has again risen. No acute overnight events noted otherwise. Objective Physical Examination General Exam: Positive: Alert, Cooperative, No Acute Distress ENT Exam: Positive: Atraumatic, Mucous membr. moist/pink Neck Exam: Negative: JVD Chest Exam: Positive: Clear to auscultation, Normal air movement Heart Exam: Positive: Rate Normal, Normal S1, Normal S2 Abdomen Exam: Positive: Soft; Negative: Tenderness Extremity Exam: Positive: Other (Patient with mild tenderness to palpation on the medial aspect of the left thigh area. No tenderness on palpation of hip joint. ROM intact on hip flexion.); Negative: Swelling Psych Exam: Negative: Oriented x 3 (patient oriented to person but not place, situation, or time.) Assessment /Plan Plan/VTE VTE Prophylaxis Ordered?: Yes Plan Metabolic Encephalopathy 2/2 Aspiration PNA, improving Mentation improved following Abx administration We will cont top monitor Recurrent Aspiration Speech therapy input noted Urinary Tract Infection Urine culture positive for pseudomonas, E. Faecalis s/p trial of Ampicillin, Meropenem Hypernatremia 2/2 Decreased PO Intake PO Intake encouraged--however, the patient continues not to take in enough fluids/food despite the nursing staff trying to feed him Left hip pain 2/[address] of the left hip negative for fracture Fall precautions PT on board Pain control as ordered We will cont to monitor Diastolic CHF, compensated HTN Cont meds as ordered BPH. Continue Sanchez Osteoarthritis Tylenol when necessary Glaucoma continue home meds Thrombocytopenia No clear etiology at this time No indication for transfusion at this time We will cont to monitor DVT prophylaxis SCDs/TEDs (No AC 2/2 Thrombocytopenia) Dispo--Patient likely will need placement, PFS on board. Poor long-term prognosis--I did discuss the patient's current clinical condition with the patient's sister Meet Gonzales via telephone this afternoon. She unfortunately has not been able to visit him in the hospital as she is also of advanced age (89 yrs old) and uses a rolling walker to get around. I did discuss my concerns with Mrs. Gonzales particularly about the patient's lack of appetite/by mouth intake, functional deconditioning, and inability to follow through with directions due to his underlying dementia. I have reviewed a [facility] form filled out by the patient from February of 2016 which the patient filled out and delineated that he would want to be DNR/DNI, and not have a feeding tube placed. I discussed these wishes with the patient's sister, who has agreed to continuing our best efforts in trying to encourage PO intake. However, if the patient continues to decline, we will consider Comfort Measures Only. Code Status: DNR/DNI VS, I&O, 24H, Fishbone Vital Signs/I&O Vital Signs Date Time Temp Pulse Resp B/P (MAP) Pulse Ox O2 Delivery O2 Flow Rate FiO2 11/04/18 10:00 97.7 65 19 113/65 (81) 95 Room Air I&O- Last 24 Hours up to 6 AM 11/04/18 06:00 Intake Total 80 ml Output Total 900 ml Balance -820 ml Laboratory Data 24H LABS Laboratory Tests 2 11/04/18 05:54: Nucleated Red Blood Cells % (auto) 0.0, Anion Gap 4L, Glomerular Filtration Rate > 60.0, Blood Urea Nitrogen 21H, Creatinine 1.11, Sodium Level 149H, Potassium Level 5.2H, Chloride Level 115H, Carbon Dioxide Level 30, Calcium Level 8.6L CBC/BMP Laboratory Tests 11/04/18 05:54 Red Blood Count 4.18 L, Mean Corpuscular Volume 92.6, Mean Corpuscular Hemoglobin 30.1, Mean Corpuscular Hemoglobin Concent 32.6, Red Cell Distribution Width 15.5 H, Calcium Level 8.6 L Microbiology Microbiology 10/26/18 Blood Culture - Final, Complete NO GROWTH AFTER 5 DAYS 10/26/18 Blood Culture - Final, Complete NO GROWTH AFTER 5 DAYS 10/25/18 Urine Culture - Final, Complete Pseudomonas Aeruginosa Enterococcus Faecalis KWADWO KILPATRICK MD Nov 04, 2018 14:42
[2018-11-04 18:00] VITALS: BP 118/63
[2018-11-04] MEDS: MIRTAZAPINE 15 MG TAB PO SCH (20:17)
[2018-11-04 22:00] VITALS: BP 117/71
[2018-11-05 02:00] VITALS: BP 108/58
[2018-11-05 06:00] VITALS: BP 123/60
[2018-11-05 06:07] LABS: HEMATOCRIT 35.9 % (42.0-52.0); HEMOGLOBIN 11.6 g/dl (13.5-17.5); MEAN CORPUSCULAR HGB CONC 32.3 g/dl (32.0-36.5); MEAN CORPUSCULAR VOLUME 92.8 fl (80.0-96.0); PLATELET COUNT, AUTOMATED 227 10^3/uL (150-450); RED BLOOD COUNT 3.87 10^6/uL (4.30-6.10); WHITE BLOOD COUNT 4.6 10^3/uL (4.0-10.0)
[2018-11-05 06:31] LABS: BLOOD UREA NITROGEN 18 MG/DL (7-18); CALCIUM LEVEL 8.4 MG/DL (8.8-10.2); CARBON DIOXIDE LEVEL 26 MEQ/L (21-32); CHLORIDE LEVEL 115 MEQ/L (98-107); CREATININE FOR GFR 0.94 MG/DL (0.70-1.30); GLOMERULAR FILTRATION RATE > 60.0 (>35); GLUCOSE, FASTING 104 MG/DL (70-100); SODIUM LEVEL 146 MEQ/L (136-145)
[2018-11-05] MEDS: SENOKOT S TAB PO SCH ×2 (08:22→20:53)
[2018-11-05] MEDS: LACTOBACILLUS ACIDOPHILUS CAP (BACID) PO SCH ×2 (08:22→18:37)
[2018-11-05] MEDS: MORPHINE 4 MG/ML 1ML VIAL/SYRINGE (J2270) IV PRN (08:22)
[2018-11-05] MEDS: MULTIVITAMINS/MINERALS THERAP 1 TAB PO SCH (08:22)
[2018-11-05] MEDS: BRIMONIDINE 0.1% OPHTH SOLN 5 ML OU SCH (08:23)
[2018-11-05] MEDS: BRINZOLAMIDE 1 % OPHTH SUSP (AZOPT) 10ML OD SCH ×2 (08:23→20:54)
[2018-11-05] MEDS ORDERED: DEXTROSE IV ONE (09:00)
[2018-11-05 10:00] VITALS: BP_SYST 100; BP_SYST 119; BP_DIAS 58
--- NOTE | 2018-11-05 12:32 | IPNPDOC ---
Subjective Date Seen The patient was seen on 11/05/18. Subjective Chief Complaint/HPI Patient is seen and examined at the bedside. No acute overnight events noted. Objective Physical Examination General Exam: Positive: Alert, Cooperative, No Acute Distress ENT Exam: Positive: Atraumatic, Mucous membr. moist/pink Neck Exam: Negative: JVD Chest Exam: Positive: Clear to auscultation, Normal air movement Heart Exam: Positive: Rate Normal, Normal S1, Normal S2 Abdomen Exam: Positive: Soft; Negative: Tenderness Extremity Exam: Negative: Tenderness, Swelling Psych Exam: Negative: Oriented x 3 (patient oriented to person but not place, situation, or time.) Assessment /Plan Plan/VTE VTE Prophylaxis Ordered?: Yes Plan Metabolic Encephalopathy 2/2 Aspiration PNA, improving Mentation improved following Abx administration We will cont to monitor Recurrent Aspiration Speech therapy input noted Urinary Tract Infection Urine culture positive for pseudomonas, E. Faecalis s/p trial of Ampicillin, Meropenem Hypernatremia 2/2 Decreased PO Intake PO Intake encouraged--however, the patient continues not to take in enough fluids/food despite the nursing staff trying to feed him Left hip pain 2/[address] of the left hip negative for fracture Fall precautions PT on board Pain control as ordered We will cont to monitor Diastolic CHF, compensated HTN Cont meds as ordered BPH. Continue Sanchez Osteoarthritis Tylenol when necessary Glaucoma continue home meds Thrombocytopenia No clear etiology at this time No indication for transfusion at this time We will cont to monitor DVT prophylaxis SCDs/TEDs (No AC 2/2 Thrombocytopenia) Dispo--Patient likely will need placement, PFS on board. Poor long-term prognosis VS, I&O, 24H, Fishbone Vital Signs/I&O Vital Signs Date Time Temp Pulse Resp B/P (MAP) Pulse Ox O2 Delivery O2 Flow Rate FiO2 11/05/18 10:00 96.8 56 18 100/58 (72) 97 Room Air I&O- Last 24 Hours up to 6 AM 11/05/18 06:00 Intake Total 1365 ml Output Total 775 ml Balance 590 ml Laboratory Data 24H LABS Laboratory Tests 2 11/05/18 05:45: Nucleated Red Blood Cells % (auto) 0.0, Anion Gap 5L, Glomerular Filtration Rate > 60.0, Blood Urea Nitrogen 18, Creatinine 0.94, Sodium Level 146H, Potassium Level 4.0#, Chloride Level 115H, Carbon Dioxide Level 26, Calcium Level 8.4L CBC/BMP Laboratory Tests 11/05/18 05:45 Red Blood Count 3.87 L, Mean Corpuscular Volume 92.8, Mean Corpuscular Hemoglobin 30.0, Mean Corpuscular Hemoglobin Concent 32.3, Red Cell Distribution Width 15.8 H, Calcium Level 8.4 L Microbiology Microbiology 10/26/18 Blood Culture - Final, Complete NO GROWTH AFTER 5 DAYS 10/26/18 Blood Culture - Final, Complete NO GROWTH AFTER 5 DAYS KWADWO KILPATRICK MD Nov 05, 2018 12:32
[2018-11-05 14:00] VITALS: BP 106/60
[2018-11-05 18:00] VITALS: BP 115/61
[2018-11-05] MEDS: MIRTAZAPINE 15 MG TAB PO SCH (20:53)
[2018-11-05 22:00] VITALS: BP 116/59
[2018-11-06] VITALS (7 sets, daily range): BP systolic 82–115; BP diastolic 42–68
[2018-11-06] MEDS ORDERED: FUROSEMIDE 20 MG/2 ML VIAL (J1940) IV ONE (04:00)
[2018-11-06 06:00] LABS: HEMATOCRIT 36.7 % (42.0-52.0); HEMOGLOBIN 11.8 g/dl (13.5-17.5); MEAN CORPUSCULAR HEMOGLOBIN 29.9 pg (27.0-33.0); MEAN CORPUSCULAR HGB CONC 32.2 g/dl (32.0-36.5); MEAN CORPUSCULAR VOLUME 92.9 fl (80.0-96.0); PLATELET COUNT, AUTOMATED 220 10^3/uL (150-450); RED BLOOD COUNT 3.95 10^6/uL (4.30-6.10); WHITE BLOOD COUNT 4.2 10^3/uL (4.0-10.0)
[2018-11-06 06:20] LABS: BLOOD UREA NITROGEN 15 MG/DL (7-18); CARBON DIOXIDE LEVEL 26 MEQ/L (21-32); CHLORIDE LEVEL 111 MEQ/L (98-107); CREATININE FOR GFR 0.92 MG/DL (0.70-1.30); GLOMERULAR FILTRATION RATE > 60.0 (>35); GLUCOSE, FASTING 97 MG/DL (70-100); SODIUM LEVEL 144 MEQ/L (136-145)
[2018-11-06] MEDS: LACTOBACILLUS ACIDOPHILUS CAP (BACID) PO SCH ×2 (10:47→17:26)
[2018-11-06] MEDS: MULTIVITAMINS/MINERALS THERAP 1 TAB PO SCH (10:47)
[2018-11-06] MEDS: SENOKOT S TAB PO SCH ×3 (10:47→21:05)
[2018-11-06] MEDS: BRIMONIDINE 0.1% OPHTH SOLN 5 ML OU SCH (10:47)
[2018-11-06] MEDS: BRINZOLAMIDE 1 % OPHTH SUSP (AZOPT) 10ML OD SCH ×2 (10:47→21:05)
--- NOTE | 2018-11-06 11:58 | IPNPDOC ---
Subjective Date Seen The patient was seen on 11/06/18. Subjective Chief Complaint/HPI Patient seen and examined at the bedside. The patient did require oxygen overnight due to crackles at the bases of the lungs from IV fluids. His IV fluids have been stopped at this time, and he was given a dose of Lasix. Objective Physical Examination General Exam: Positive: Alert, Cooperative, No Acute Distress ENT Exam: Positive: Atraumatic, Mucous membr. moist/pink Neck Exam: Negative: JVD Chest Exam: Positive: Rales (faint bibasilar crackles); Negative: Wheezing Heart Exam: Positive: Rate Normal, Normal S1, Normal S2 Abdomen Exam: Positive: Soft; Negative: Tenderness Extremity Exam: Positive: Swelling (1+ pitting edema in the lower extremity is bilaterally); Negative: Tenderness Psych Exam: Negative: Oriented x 3 (patient oriented to person but not place, situation, or time.) Assessment /Plan Plan/VTE VTE Prophylaxis Ordered?: Yes Plan Metabolic Encephalopathy 2/2 Aspiration PNA, improving Mentation improved following Abx administration We will cont to monitor Recurrent Aspiration Speech therapy input noted Urinary Tract Infection Urine culture positive for pseudomonas, E. Faecalis s/p trial of Ampicillin, Meropenem Hypernatremia 2/2 Decreased PO Intake PO Intake encouraged--however, the patient continues not to take in enough fluids/food despite the nursing staff trying to feed him Left hip pain 2/[address] of the left hip negative for fracture Fall precautions PT on board Pain control as ordered We will cont to monitor Diastolic CHF, compensated HTN Cont meds as ordered BPH. Continue Sanchez Osteoarthritis Tylenol when necessary Glaucoma continue home meds Thrombocytopenia No clear etiology at this time No indication for transfusion at this time We will cont to monitor DVT prophylaxis SCDs/TEDs (No AC 2/2 Thrombocytopenia) Dispo--Patient likely will need placement, PFS on board. Poor long-term prognosis VS, I&O, 24H, Fishbone Vital Signs/I&O Vital Signs Date Time Temp Pulse Resp B/P (MAP) Pulse Ox O2 Delivery O2 Flow Rate FiO2 11/06/18 10:00 98.4 86 21 102/58 (73) 98 Nasal Cannula 2.0 I&O- Last 24 Hours up to 6 AM 11/06/18 05:59 Intake Total 1415 ml Output Total 575 ml Balance 840 ml Laboratory Data 24H LABS Laboratory Tests 2 11/06/18 05:30: Nucleated Red Blood Cells % (auto) 0.0, Anion Gap 7L, Glomerular Filtration Rate > 60.0, Blood Urea Nitrogen 15, Creatinine 0.92, Sodium Level 144, Potassium Level 4.0, Chloride Level 111H, Carbon Dioxide Level 26, Calcium Level 8.0L CBC/BMP Laboratory Tests 11/06/18 05:30 Red Blood Count 3.95 L, Mean Corpuscular Volume 92.9, Mean Corpuscular Hemoglobin 29.9, Mean Corpuscular Hemoglobin Concent 32.2, Red Cell Distribution Width 15.7 H, Calcium Level 8.0 L KWADWO KILPATRICK MD Nov 06, 2018 11:58
[2018-11-06] MEDS: MIRTAZAPINE 15 MG TAB PO SCH ×2 (21:00→21:04)
[2018-11-06] MEDS: ACETAMINOPHEN TAB 650MG DOSE (2X325MG) PO PRN (21:03)
[2018-11-06] MEDS ORDERED: KETOROLAC 30 MG/ML VIAL (J1885) IV ONE (21:45)
[2018-11-07 02:00] VITALS: BP 60/38
[2018-11-07 02:07] VITALS: BP 60/42
[2018-11-07] MEDS ORDERED: NS 250 ML IV ONE (02:19)
[2018-11-07 02:50] VITALS: BP 87/46
[2018-11-07 04:10] VITALS: BP 90/60
[2018-11-07] MEDS: ACETAMINOPHEN TAB 650MG DOSE (2X325MG) PO PRN (05:13)
[2018-11-07 06:22] LABS: HEMATOCRIT 35.3 % (42.0-52.0); HEMOGLOBIN 11.2 g/dl (13.5-17.5); MEAN CORPUSCULAR HGB CONC 31.7 g/dl (32.0-36.5); MEAN CORPUSCULAR VOLUME 94.6 fl (80.0-96.0); PLATELET COUNT, AUTOMATED 206 10^3/uL (150-450); RED BLOOD COUNT 3.73 10^6/uL (4.30-6.10); WHITE BLOOD COUNT 4.6 10^3/uL (4.0-10.0)
[2018-11-07 06:25] VITALS: BP 70/38
[2018-11-07 06:41] LABS: CALCIUM LEVEL 7.9 MG/DL (8.8-10.2); CREATININE FOR GFR 1.48 MG/DL (0.70-1.30); GLOMERULAR FILTRATION RATE 47.8 (>35); POTASSIUM SERUM 3.9 MEQ/L (3.5-5.1)
[2018-11-07] MEDS ORDERED: MIDODRINE 5 MG TAB PO PRN (06:45)
--- NOTE | 2018-11-07 11:29 | IPNPDOC ---
Subjective Date Seen The patient was seen on 11/07/18. Subjective Chief Complaint/HPI Patient seen and examined at the bedside. Last night the patient became febrile and hypotensive. He was given a small IV fluid bolus and his volume status became further decompensated. I do believe the patient may have suffered a recurrent aspiration event and subsequently became septic. The patient's next of kin, Meet Gonzales was notified. 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 Objective Physical Examination General Exam: Positive: Alert, Cooperative, No Acute Distress ENT Exam: Positive: Atraumatic, Mucous membr. moist/pink Chest Exam: Positive: Rales (bibasilar crackles); Negative: Wheezing Heart Exam: Positive: Rate Normal, Normal S1, Normal S2 Abdomen Exam: Positive: Soft; Negative: Tenderness Extremity Exam: Positive: Swelling (1+ pitting edema in the lower extremities bilaterally); Negative: Tenderness Psych Exam: Negative: Oriented x 3 (patient oriented to person but not place, situation, or time.) Assessment /Plan Plan/VTE VTE Prophylaxis Ordered?: Yes Plan Septic Shock 2/2 Recurrent Aspiration PNA Decompensated Congestive heart failure Metabolic Encephalopathy 2/2 Aspiration PNA Acute kidney injury Urinary Tract Infection Hypernatremia 2/2 Decreased PO Intake Left hip pain 2/2 Mechanical fall HTN BPH. Osteoarthritis Glaucoma Thrombocytopenia Poor long-term prognosis Code Status: Patient made Comfort Measures Only by Next of Kin: Meet Gonzales (sister) as noted above. MOLST form signed, dated, and placed in the chart. We will continue to provide the patient and his family supportive care at this time. Hospice consulted. VS, I&O, 24H, Fishbone Vital Signs/I&O Vital Signs Date Time Temp Pulse Resp B/P (MAP) Pulse Ox O2 Delivery O2 Flow Rate FiO2 11/07/18 06:25 68 16 70/38 (49) Nasal Cannula 2.0 11/07/18 06:00 97.8 94 I&O- Last 24 Hours up to 6 AM 11/07/18 06:00 Intake Total 580 ml Output Total 525 ml Balance 55 ml Laboratory Data 24H LABS Laboratory Tests 2 11/07/18 05:21: Nucleated Red Blood Cells % (auto) 0.0, Anion Gap 8, Glomerular Filtration Rate 47.8, Blood Urea Nitrogen 22H, Creatinine 1.48#H, Sodium Level 145, Potassium Level 3.9, Chloride Level 110H, Carbon Dioxide Level 27, Calcium Level 7.9L CBC/BMP Laboratory Tests 11/07/18 05:21 Red Blood Count 3.73 L, Mean Corpuscular Volume 94.6, Mean Corpuscular Hemoglobin 30.0, Mean Corpuscular Hemoglobin Concent 31.7 L, Red Cell Distribution Width 15.9 H, Calcium Level 7.9 L KWADWO KILPATRICK MD Nov 07, 2018 11:29
[2018-11-08] MEDS: SCOPOLAMINE 1MG TRANSDERMAL PATCH TOP SCH (01:14)
--- NOTE | 2018-11-08 16:00 | IPN ---
DATE: 11/08/2018 SUBJECTIVE: Patient is seen today in the room. Patient appeared comfortable in the bed. No events reported. OBJECTIVE: GENERAL: Patient is resting comfortably in bed, no acute distress noted. HEENT: Normocephalic, atraumatic, bitemporal wasting. EXTREMITIES: No noticeable swelling noted. ASSESSMENT: 1. Septic shock secondary to recurrent aspiration pneumonia. 2. Decompensated congestive heart failure. 3. Metabolic encephalopathy secondary to frequent urinary tract infection (UTI) and frequent aspiration pneumonia. 4. Acute kidney injury. 5. Recurrent urinary tract infection. 6. Hyperkalemia secondary to poor oral intake. 7. Hypertension. 8. BPH. 9. Osteoarthritis. 10. Thrombocytopenia. PLAN: Patient was made comfort measures only on 11/07/2018. Medical Orders for Life-Sustaining Treatment (MOLST) form is updated with patient's sister, Janet. Hospice consulted. Poor long-term prognosis. Patient appeared comfortable right at this moment.
--- NOTE | 2018-11-09 19:19 | IPNPDOC ---
Text Note Date of Service The patient was seen on 11/09/18. NOTE SUBJECTIVE: Patient is seen today in the room. Patient appeared comfortable during the encounter. No event reported. OBJECTIVE: GENERAL: Patient is resting comfortably in bed, no acute distress noted. HEENT: Normocephalic, atraumatic, bitemporal wasting. EXTREMITIES: No noticeable swelling noted. ASSESSMENT: #. Septic shock secondary to recurrent aspiration pneumonia. #. Decompensated congestive heart failure. #. Metabolic encephalopathy secondary to frequent urinary tract infection (UTI) and frequent aspiration pneumonia. #. Acute kidney injury. #. Recurrent urinary tract infection. #. Hyperkalemia secondary to poor oral intake. #. Hypertension. #. BPH. #. Osteoarthritis. #. Thrombocytopenia. PLAN: Patient was made comfort measures only on 11/07/2018. Medical Orders for Life-Sustaining Treatment (MOLST) form is updated with patient's sister, Janet. Hospice consulted. Poor long-term prognosis. Patient is on hospice medications. VS,Fishbone, I+O VS, Fishbone, I+O Vital Signs Date Time Temp Pulse Resp B/P (MAP) Pulse Ox O2 Delivery O2 Flow Rate FiO2 11/09/18 10:04 2.0 11/07/18 06:25 68 16 70/38 (49) Nasal Cannula 11/07/18 06:00 97.8 94 I&O- Last 24 Hours up to 6 AM 11/09/18 05:59 Intake Total 710 ml Output Total 1000 ml Balance -290 ml JODI BOB DO Nov 09, 2018 19:19
--- NOTE | 2018-11-10 16:58 | IPNPDOC ---
Text Note Date of Service The patient was seen on 11/10/18. NOTE SUBJECTIVE: Patient is seen today in the room. Patient denies any discomfort. No event reported. Patient does not remember when was the last time he had meal. OBJECTIVE: GENERAL: Patient is resting comfortably in bed, no acute distress noted. HEENT: Normocephalic, atraumatic, bitemporal wasting. EXTREMITIES: No noticeable swelling noted. ASSESSMENT: #. Septic shock secondary to recurrent aspiration pneumonia. #. Decompensated congestive heart failure. #. Metabolic encephalopathy secondary to frequent urinary tract infection (UTI) and frequent aspiration pneumonia. #. Acute kidney injury. #. Recurrent urinary tract infection. #. Hyperkalemia secondary to poor oral intake. #. Hypertension. #. BPH. #. Osteoarthritis. #. Thrombocytopenia. PLAN: Patient was made comfort measures only on 11/07/2018. Medical Orders for Life-Sustaining Treatment (MOLST) form is updated with patient's sister, Janet. Hospice consulted. Poor long-term prognosis. Patient is on hospice medications. Waiting hospice facility placement. VS,Fishbone, I+O VS, Fishbone, I+O Vital Signs Date Time Temp Pulse Resp B/P (MAP) Pulse Ox O2 Delivery O2 Flow Rate FiO2 11/10/18 09:37 2.0 11/07/18 06:25 68 16 70/38 (49) Nasal Cannula 11/07/18 06:00 97.8 94 I&O- Last 24 Hours up to 6 AM 11/10/18 06:00 Intake Total 1060 ml Output Total 700 ml Balance 360 ml JODI BOB DO Nov 10, 2018 16:58
[2018-11-11] MEDS: SCOPOLAMINE 1MG TRANSDERMAL PATCH TOP SCH (01:07)
--- NOTE | 2018-11-11 15:11 | IPNPDOC ---
Text Note Date of Service The patient was seen on 11/11/18. NOTE SUBJECTIVE: Patient is seen today in the room. Patient is not fully oriented during encounter. Patient denies any discomfort. OBJECTIVE: GENERAL: No acute distress noted. HEENT: Normocephalic, atraumatic, bitemporal wasting. EXTREMITIES: No noticeable swelling noted. ASSESSMENT: #. Septic shock secondary to recurrent aspiration pneumonia. #. Decompensated congestive heart failure. #. Metabolic encephalopathy secondary to frequent urinary tract infection (UTI) and frequent aspiration pneumonia. #. Acute kidney injury. #. Recurrent urinary tract infection. #. Hyperkalemia secondary to poor oral intake. #. Hypertension. #. BPH. #. Osteoarthritis. #. Thrombocytopenia. PLAN: Patient was made comfort measures only on 11/07/2018. Medical Orders for Life-Sustaining Treatment (MOLST) form is updated with patient's sister, Janet. Hospice consulted. Poor long-term prognosis. Patient is on hospice medications. Patient appears comfortable. Waiting hospice facility placement. VS,Fishbone, I+O VS, Fishbone, I+O Vital Signs Date Time Temp Pulse Resp B/P (MAP) Pulse Ox O2 Delivery O2 Flow Rate FiO2 11/11/18 09:47 2.0 11/07/18 06:25 68 16 70/38 (49) Nasal Cannula 11/07/18 06:00 97.8 94 I&O- Last 24 Hours up to 6 AM 11/11/18 06:00 Intake Total 440 ml Output Total 1075 ml Balance -635 ml JODI BOB DO Nov 11, 2018 15:10
[2018-11-12] MEDS ORDERED: LORazepam 2 MG/ML VIAL (J2060) IV PRN (06:30)
--- NOTE | 2018-11-13 10:56 | DSES ---
DATE OF ADMISSION: 10/23/2018 DATE OF DISCHARGE: 11/12/2018 DATE OF EXPIRATION: 11/12/2018 at 8:40 a.m. CONSULTANTS: None. DISCHARGE DIAGNOSES: 1. Septic shock secondary to recurrent aspiration pneumonia. 2. Decompensated congestive heart failure. 3. Metabolic encephalopathy secondary to recurrent urinary tract infection and frequent aspiration pneumonia. 4. Acute kidney injury. 5. Benign prostatic hypertrophy, chronic Sanchez catheter. 6. Recurrent urinary tract infections from chronic Sanchez catheter. 7. Hyperkalemia. 8. Severe protein calorie malnutrition. 9. Osteoarthritis. 10. Thrombocytopenia. HOSPITAL COURSE: The patient is an 88-year-old gentleman who came to [facility] on 10/23/2018 after a fall resulting in left hip pain. Imaging studies performed. No fracture was found. The patient was found to have intolerable pain and the patient was admitted under the hospitalist service. Pain medications were ordered and the patient continued to start to work with physical therapy. The patient's medications were adjusted due to frequent refusal of the medications. Due to the change in mental status and the suspicion for infectious disease causes, work up was initiated. The patient was found to have a positive urinalysis. The patient was started on empiric antibiotics. Chest x-ray also found new findings that suggested aspiration pneumonia. Antibiotic selection was chosen to cover aspiration pneumonia and urinary tract infection. The patient's sister was also contacted regarding to patient's clinical picture. Due to the frequent aspiration pneumonia, therapy was consulted for swallowing evaluation and diet was changed per their recommendations. The patient continued demonstrating poor oral intake. The patient continued to demonstrate clinical deterioration due to the recurrent infection and poor oral intake. The patient's sister was contacted and she decided to make the patient DO NOT RESUSCITATE/DO NOT INTUBATE (DNR/DNI) and to continue to encourage oral intake as tolerated. However, it had not been very successful for several days. Later, the patient became hypotensive and febrile. The patient demonstrated significant deterioration in his physical condition. It seems that patient developed septic shock and the patient's sister was notified. The patient's proxy, Mrs. 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 The patient continued to be on the hospitalist service while awaiting for the hospice facility placement. Unfortunately, on 11/12/2018, the patient at 8:40 a.m. family members were notified.
== END 2018-11-12 08:40 | disposition expired | DRG 698 ==
LOC: M ED 02:10 → EDBD 02:10 → M ED INP 06:29 → M MSPAV 15:30 → OBSVTOIN 10-26 12:57
PROVIDERS: ADMIT Internal Medicine; ATTEND Internal Medicine
DX: T83.518A Infection and inflammatory reaction due to other urinary catheter, initial encounter (principal); G93.41 Metabolic encephalopathy; J69.0 Pneumonitis due to inhalation of food and vomit; A41.9 Sepsis, unspecified organism; R65.21 Severe sepsis with septic shock; I50.33 Acute on chronic diastolic (congestive) heart failure; E43 Unspecified severe protein-calorie malnutrition; N17.9 Acute kidney failure, unspecified; E87.0 Hyperosmolality and hypernatremia; Z51.5 Encounter for palliative care; Z66 Do not resuscitate; I11.0 Hypertensive heart disease with heart failure; M25.552 Pain in left hip; R63.0 Anorexia; E78.5 Hyperlipidemia, unspecified; N40.0 Benign prostatic hyperplasia without lower urinary tract symptoms; M19.90 Unspecified osteoarthritis, unspecified site; R13.10 Dysphagia, unspecified; F03.90 Unspecified dementia, unspecified severity, without behavioral disturbance, psychotic disturbance, mood disturbance, and anxiety; E87.5 Hyperkalemia; B95.2 Enterococcus as the cause of diseases classified elsewhere; B96.5 Pseudomonas (aeruginosa) (mallei) (pseudomallei) as the cause of diseases classified elsewhere; H40.9 Unspecified glaucoma; D69.6 Thrombocytopenia, unspecified; Z95.0 Presence of cardiac pacemaker; Z98.41 Cataract extraction status, right eye; Z98.42 Cataract extraction status, left eye; Z79.899 Other long term (current) drug therapy; Y84.6 Urinary catheterization as the cause of abnormal reaction of the patient, or of later complication, without mention of misadventure at the time of the procedure